=== PATIENT | male | born 1990 | race African-American/Black ===

== ENCOUNTER 2020-08-18 13:53 | Outpatient (REF) | payer OTHER, SELFPAY ==
[2020-08-18 16:31] LABS: MANUAL DIFF FLAG NO
[2020-08-18 16:34] LABS: Basophils Percent Auto 0.3 % (0-2); Eosinophils Absolute Auto 0.1 X10*3/uL (0.0-0.4); Eosinophils Percent Auto 1.5 % (0-4); Hematocrit 31.3 % (42-52); Hemoglobin 9.5 g/dl (14.0-18.0); Imm Gran Abs Auto 0.01 X10*3/uL (0.00-0.03); Imm Gran Pct Auto 0.3 % (0.0-0.4); Mean Corpuscular HGB Conc 30.4 g/dl (31.0-36.0); Mean Corpuscular Hemoglobin 22.8 pg (27.0-33.0); Mean Corpuscular Volume 75.1 fL (80-98); Mean Platelet Volume 9.7 fL (9.4-12.4); Monocytes Absolute Auto 0.2 X10*3/uL (0.1-1.2); Monocytes Percent Auto 4.6 % (2-11); Neutrophils Absolute Auto 2.1 X10*3/uL (2.0-8.3); Neutrophils Percent Auto 63.3 % (45-73); Platelet Count 477 X10*3/uL (160-400); Red Blood Count 4.17 X10*6/uL (4.60-5.80); Red Cell Distribution Width 15.8 % (11.0-16.0); White Blood Count 3.3 X10*3/uL (4.8-10.8)
[2020-08-18 16:57] LABS: Iron 19 mcg/dL (45-160); Percent Iron Saturation 7 % (15-50); Total Iron Binding Capacity 259 mcg/dL (228-428); Unsaturated Iron Binding 240 ug/dL
== END 2020-08-18 13:54 | disposition home or self-care (01) ==
LOC: HO.HMGCLDS 13:53
PROVIDERS: PCP Internal Medicine; Visit Provider Internal Medicine
DX: D64.9 Anemia, unspecified (principal)
CPT/HCPCS: 36415; 83540; 85025

== ENCOUNTER 2021-04-24 16:53 | Emergency (ER) | payer OTHER, SELFPAY ==
[2021-04-24 17:02] VITALS: BP 133/77; PULSE 69; RESP 18; TEMP 37; O2SAT 100; BMI 50.6
--- NOTE | 2021-04-24 17:50 | ED_ITS ---
HPI - Skin/Abscess/Foreign Bdy General Chief complaint: Skin/Abscess/Foreign Body Stated complaint: body rash Time Seen by Provider: 04/24/21 17:41 Source: patient Mode of arrival: ambulatory Limitations: no limitations History of Present Illness HPI narrative: 30-year-old male with a history of stage IV Hodgkin lymphoma with splenic, lung and bone marrow involvement who is now status post 6 cycles of chemotherapy, completed in January 2021 who presents to the ER with red raised itchy rash on his bilateral arms, lower trunk and inner thighs for the last 1 week. Rash appears to be worse at point of contact and flexor surfaces. He did recently start going to the gym 2 weeks ago and has been sweating more than usual. He denies any new creams, lotions, detergents, colognes. He has not taken any medications for the itching. He denies any shortness of breath, wheezing, mouth or throat swelling. No new medications. He had a it PE T/CT scan after he completed chemotherapy which is consistent with complete remission he started radiation therapy for bulky disease in the chest. He still has his port in his left chest with plan to get it out at the next heme/Onc appointment in a month. No fever or chills. No tenderness or year warmth to the port site. MD complaint: rash Onset (ago): week(s) (1) Tetanus up to date: yes Location: LUE, RUE, LLE and RLE Severity: moderate Severity scale (1-10): 7 Quality: burning and pruritic Pain Consistency: constant Relieving factors: none Exacerbating factors: none Context: other (Recently started going to the gym.) Associated symptoms: denies other symptoms Treatments prior to arrival: none Related Data Previous Rx's Medication Instructions Recorded diclofenac sodium 1 % topical gel 4 g TOPICAL QID PRN #100 g 11/24/20 diphenhydramine HCl 25 mg tablet 50 mg PO Q6H PRN #14 tab 04/24/21 (Benadryl Allergy) prednisone 50 mg tablet 50 mg PO DAILY #6 tab 04/24/21 Allergies Allergy/AdvReac Type Severity Reaction Status Date / Time amoxicillin Allergy Unknown Verified 04/24/21 18:40 Review of Systems Review of Systems: Constitutional: No Fever, No Chills ENT/Mouth: No sore throat, No Rhinorrhea, No Swallowing Difficulty Cardiovascular: No Chest Pain, No SOB, No Orthopnea, No Edema Respiratory: No Cough, No Sputum, No Wheezing, No dyspnea Gastrointestinal: No Nausea, No Vomiting,, No abdominal Pain Musculoskeletal: No joint pain, No Myalgias Skin: + Skin Lesions, + rash Neuro: No Weakness, No Numbness, No Dizziness, No Headache Psych: +Anxiety/Panic, No Depression Heme/Lymph: No Bruising, No Lymphadenopathy Endocrine: No Polyuria, No Polydipsia [facility] Past Medical History Medical History (Updated 04/24/21 @ 19:01 by ESTRADA Arvizu) Anemia Hodgkin's lymphoma Obesity Obstructive sleep apnea Surgical History History of bronchoscopy Family History Family History Other No significant family history Social History Social History Housing: House Alcohol intake: former Patient Tobacco Use Status: Never used Tobacco e-Cigarette/Vaping Use: Never Used Second Hand Smoke Exposure: No Advance Directives: No Advance Directives Information Provided: No service: No Current occupational status: unemployed Physical Exam 2 Vital Signs: Vital Signs: Last Vital Signs Temp 98.6 F 04/24/21 17:02 Pulse 69 04/24/21 17:02 Resp 18 04/24/21 17:02 BP 133/77 04/24/21 17:02 Pulse Ox 100 04/24/21 17:02 Body Mass Index 50.6 Appearance: Alert. Oriented X3. No acute distress. Eyes: Normal external inspection ENT: Pharynx normal. Normal appearing lips, no soft palate or hard palate swelling uvula is midline. Neck: Normal inspection. Neck supple. No lymphadenopathy CVS: Normal heart rate and rhythm. Pulses normal. Respiratory: No respiratory distress. Breath sounds normal. Palpable port in the left upper chest. No tenderness, overlying erythema or warmth. Abdomen: Soft and nontender. +BS x4 Skin: Skin warm and dry. Normal skin color. Normal skin turgor. There is an urticarial rash to the bilateral flexor surfaces of his upper extremities, urticarial lesions to his anterior chest wall, lower trunk where his jeans are hitting the skin and bilateral inner thighs. There is also a faint maculopapular rash on his extensor surfaces of his upper and lower arms bilaterally. Extremities: No lower extremity edema. Neuro: Oriented X 3. No motor deficit. No sensory deficit. Course Course Course Narrative: 22-year-old male with a history of Hodgkin's lymphoma status post chemotherapy and radiation now in remission who is presenting to the ER with itchy urticarial rash on his arms, legs and trunk. He also has a mild maculopapular rash on his upper extremities. It does not appear to be purpura. No evidence of angioedema. Given his history will check coags and CBC. Reevaluation(s) Reevaluation #1: Lab workup is remarkable unremarkable. Itching is improved with Benadryl and steroids. He is stable for discharge home with treatment for urticaria. He has follow up with his Onologist in 1 month. MDM - Skin/Abscess/Foreign Bdy Lab Data Result diagrams: 04/24/21 18:37 04/24/21 18:37 Labs: Lab Results 04/24/21 04/24/21 04/24/21 Range/Units 18:37 18:37 18:37 WBC 8.0 (4.8-10.8) X10*3/uL RBC 4.92 (4.60-5.80) X10*6/uL Hgb 13.6 L (14.0-18.0) g/dl Hct 41.9 L (42.0-52.0) % MCV 85.2 (80.0-98.0) fL MCH 27.6 (27.0-33.0) pg MCHC 32.5 (31.0-36.0) g/dl RDW 15.0 (11.0-16.0) % Plt Count 249 (160-400) X10*3/uL MPV 9.0 L (9.4-12.4) fL Immature Gran % (Auto) 0.6 H (0.0-0.4) % Neut % (Auto) 59.3 (45-73) % Lymph % (Auto) 10.0 L (20-40) % [place] % (Auto) 9.5 (2-11) % Eos % (Auto) 20.1 H (0-4) % Baso % (Auto) 0.5 (0-2) % Lymph # (Auto) 0.8 L (1.2-4.9) X10*3/uL [place] # (Auto) 0.8 (0.1-1.2) X10*3/uL Eos # (Auto) 1.6 H (0.0-0.4) X10*3/uL Baso # (Auto) 0.0 (0.0-0.2) X10*3/uL Abs Immat Gran (auto) 0.05 H (0.00-0.03) X10*3/uL Absolute Neuts (auto) 4.8 (2.0-8.3) x10*3/uL Absolute Nucleated RBC 0.000 (0.0-0.012) X10*3/uL Nucleated RBC % (auto) 0.0 (0.0-0.2) /100WBC PT 11.2 (9.9-13.0) SEC INR 1.0 (0.9-1.1) APTT 33.7 (24.1-38.0) SEC Sodium 143 (135-145) mmol/L Potassium 4.6 (3.3-5.1) mmol/L Chloride 108 (96-108) mmol/L Carbon Dioxide 27 (22-29) mmol/L Anion Gap 13 (12-20) BUN 15 (9-16) mg/dL Creatinine 1.15 (0.5-1.4) mg/dL Estim Creat Clear Calc 120.4 Estimated GFR > 60 Random Glucose 90 (60-115) mg/dL Calcium 9.4 (8.4-10.2) mg/dL Critical Care Time Critical Care Time Critical Care Time: No Discharge Plan Discharge Clinical Impression: Urticaria Patient Disposition: Home, Self-Care Instructions: Urticaria (ED) Additional Instructions: Your lab workup today was unremarkable. Take the prescribed steroids once a day starting tomorrow for the rash. Take 50 mg of Benadryl every 6-8 hours as needed for itching. Avoid hot environment and sweating. Where breathable clothing made of cotton. Follow-up with the doctor next week. Prescriptions: New prednisone 50 mg tablet 50 mg PO DAILY Qty: 6 RF: 0 diphenhydramine HCl [Benadryl Allergy] 25 mg tablet 50 mg PO Q6H PRN (Reason: itching) Qty: 14 RF: 0 No Action diclofenac sodium 1 % gel 4 g topical QID PRN (Reason: knee pain) Qty: 100 RF: 1 Interventions: ED Discharge Assessment Last Done: 04/24/21 19:24 Discharge Date/Time: 04/24/21 19:25 Print Language: [place] Citizen
[2021-04-24] MEDS: predniSONE 20 MG TABLET 60 MG PO (18:41)
[2021-04-24] MEDS: diphenhydrAMINE HCL 25 MG TABLET 50 MG PO (18:41)
[2021-04-24 18:42] LABS: MANUAL DIFF FLAG NO
[2021-04-24 18:43] LABS: Basophils Percent Auto 0.5 % (0-2); Eosinophils Absolute Auto 1.6 X10*3/uL (0.0-0.4); Eosinophils Percent Auto 20.1 % (0-4); Hematocrit 41.9 % (42.0-52.0); Hemoglobin 13.6 g/dl (14.0-18.0); Imm Gran Abs Auto 0.05 X10*3/uL (0.00-0.03); Imm Gran Pct Auto 0.6 % (0.0-0.4); Lymphocytes Absolute Auto 0.8 X10*3/uL (1.2-4.9); Mean Corpuscular HGB Conc 32.5 g/dl (31.0-36.0); Mean Corpuscular Hemoglobin 27.6 pg (27.0-33.0); Mean Corpuscular Volume 85.2 fL (80.0-98.0); Monocytes Absolute Auto 0.8 X10*3/uL (0.1-1.2); Monocytes Percent Auto 9.5 % (2-11); Neutrophils Absolute Auto 4.8 x10*3/uL (2.0-8.3); Neutrophils Percent Auto 59.3 % (45-73); Platelet Count 249 X10*3/uL (160-400); Red Blood Count 4.92 X10*6/uL (4.60-5.80)
[2021-04-24 18:49] LABS: Prothrombin Time 11.2 SEC (9.9-13.0)
[2021-04-24 18:51] LABS: Partial Thromboplastin Time 33.7 SEC (24.1-38.0)
[2021-04-24 18:58] LABS: Anion Gap 13 (12-20); Blood Urea Nitrogen 15 mg/dL (9-16); Calcium 9.4 mg/dL (8.4-10.2); Carbon Dioxide 27 mmol/L (22-29); Chloride 108 mmol/L (96-108); Creatinine Clr Calc Pharmacy 120.4; Estimated Glomerular Filt Rate > 60; Glucose Random 90 mg/dL (60-115); Potassium 4.6 mmol/L (3.3-5.1); Sodium 143 mmol/L (135-145)
== END 2021-04-24 19:25 | disposition home or self-care (01) ==
PROVIDERS: Physician Assistant; Emergency Provider Internal Medicine
DX: L50.0 Allergic urticaria (principal); Z79.899 Other long term (current) drug therapy
CPT/HCPCS: 36415; 80048; 85025; 85610; 85730; 99283; Q0163

== ENCOUNTER 2022-05-18 12:03 | Outpatient (REF) | payer OTHER, SELFPAY ==
--- NOTE | ~2022-05-18 | XR_ITS ---
EXAMINATION: XR KNEE, RIGHT CLINICAL INFORMATION: Pain. COMPARISON: None TECHNIQUE: Four views of the right knee. FINDINGS: The tricompartment joint space is maintained normal. No bony erosive changes, loose bodies, acute fracture or dislocation. No abnormal joint effusion seen. There is lateral tibial condyle exostosis. The soft tissues are normal. XR/XR knee RT 2V IMPRESSION: 1. No acute fracture or dislocation. 2. Small lateral tibial condyle exostosis.
== END 2022-05-18 12:04 | disposition home or self-care (01) ==
LOC: HO.HMGCX 12:03
PROVIDERS: PCP Internal Medicine; Visit Provider Nurse Practitioner Family
DX: M25.561 Pain in right knee (principal)
CPT/HCPCS: 73560

== ENCOUNTER 2022-05-26 11:24 | Emergency (ER) | payer OTHER, SELFPAY ==
--- NOTE | ~2022-05-26 | CT_ITS ---
EXAMINATION: CT ABDOMEN AND PELVIS WITHOUT CONTRAST CLINICAL INFORMATION: Nausea, right flank pain COMPARISON: None TECHNIQUE: Multidetector volumetric imaging was performed from the superior aspect of the liver through the pubic symphysis. Sagittal and coronal reformatted images were obtained on the technologist's workstation. This CT examination was performed using dose optimization techniques as appropriate, variously including the following: *Automated exposure control *Adjustment of mA and/or kV according to patient size (this includes techniques or standardized protocols for targeted exams where dose is matched to indication/reason for exam; i.e. extremities or head) *Use of iterative reconstruction technique DLP: 795 mGy-cm FINDINGS: LUNG BASES: Tiny nodule or granuloma lateral right lung series 3 image 1 at 1.5 to 2 mm. LIVER, GALLBLADDER, AND BILIARY TREE: The liver is normal in size, shape, and attenuation. No focal hepatic lesion or biliary ductal dilatation is present. No calcific cholelithiasis. PANCREAS: Small anterior pancreatic hypodensity series 3 image 29 at 6 mm and 1 Hounsfield unit, likely representing a small cyst. SPLEEN: Unremarkable. ADRENAL GLANDS: Unremarkable. KIDNEYS AND URETERS: Small cyst lower pole left kidney, for which no further follow-up recommended. Tiny left nephroliths, nonobstructive. Mild right-sided hydronephrosis secondary to a right ureteral stone at the level of L4 measuring 5 mm maximal dimension. BLADDER: Unremarkable. GASTROINTESTINAL TRACT: Occasional colonic diverticula. Appendix appears unremarkable. No small bowel obstructive process or abnormal omental thickening. ABDOMINAL WALL: No significant hernia is appreciated. LYMPH NODES: No suspiciously enlarged adenopathy. VASCULAR: Unremarkable. PELVIC VISCERA: Unremarkable. OSSEOUS STRUCTURES: No compression fractures. CT/CT abdomen pelvis wo IV con IMPRESSION: Mild right hydronephrosis secondary to a right ureteral stone measuring 5 mm. Tiny left nephroliths, nonobstructive. Tiny lateral right lung nodule or granuloma. If the patient is low risk, no further follow-up. If the patient is high risk, optional CT in 12 months could be performed. Other incidental findings as noted above. Fleischner guidelines were followed.
[2022-05-26 11:29] VITALS: BP 108/62; PULSE 57; RESP 19; TEMP 36.8; O2SAT 100; BMI 39.4
--- NOTE | 2022-05-26 11:32 | ED.ABDPAIN ---
HPI - Abdominal Pain General Chief Complaint: Abdominal Pain <ESTRADA Steel Last Filed: 05/26/22 11:35> Stated Complaint: ABD PAIN <ESTRADA Steel Last Filed: 05/26/22 11:35> Time Seen by Provider: 05/26/22 11:49 <ESTRADA Steel Last Filed: 05/26/22 11:35> Source: patient <ESTRADA Arvizu Last Filed: 05/26/22 14:54> Mode of arrival: ambulatory <ESTRADA Arvizu Last Filed: 05/26/22 14:54> Limitations: no limitations <ESTRADA Arvizu Last Filed: 05/26/22 14:54> History of Present Illness HPI narrative: 31 yo Sami speaking male presenting to the ER c/o acute onset right sided abdominal pain that started today. He states the pain is associated with nausea and body aches. He states he does not feel good. The pain seems to come and go and is located in his right side and his right lower quadrant. He has not vomited or had any fevers. He has no pain on the left side of his abdomen. He denies any history. No history of kidney stones per his report. <ESTRADA Arvizu Last Filed: 05/26/22 14:54> MD elicited complaint: abdominal pain and flank pain <ESTRADA Arvizu Last Filed: 05/26/22 14:54> Pertinent past history: gastrointestinal bleeding <ESTRADA Arvizu Last Filed: 05/26/22 14:54> Onset (ago): hour(s) <ESTRADA Arvizu Last Filed: 05/26/22 14:54> Pain Consistency: intermittent <ESTRADA Arvizu Last Filed: 05/26/22 14:54> Location: R flank <ESTRADA Arvizu Last Filed: 05/26/22 14:54> Severity: moderate <ESTRADA Arvizu Last Filed: 05/26/22 14:54> Pain scale (0-10): 5 <ESTRADA Arvizu Last Filed: 05/26/22 14:54> Quality: sharp <ESTRADA Arvizu Last Filed: 05/26/22 14:54> Radiation: RLQ <ESTRADA Arvizu - Last Filed: 05/26/22 14:54> Migration to: no migration <ESTRADA Arvizu - Last Filed: 05/26/22 14:54> Exacerbating factors: nothing <ESTRADA Arvizu - Last Filed: 05/26/22 14:54> Relieving factors: nothing <ESTRADA Arvizu - Last Filed: 05/26/22 14:54> Related Data Home Medications: Previous Rx's Medication Instructions Recorded diclofenac sodium 1 % topical gel 4 g topical QID PRN knee pain #100 11/24/20 grams diphenhydramine HCl 25 mg tablet 50 mg PO Q6H PRN itching #14 tabs 04/24/21 (Benadryl Allergy) prednisone 50 mg tablet 50 mg PO DAILY #6 tabs 04/24/21 ibuprofen 600 mg tablet 600 mg PO Q8H PRN pain #60 tabs 05/18/22 ibuprofen 600 mg tablet 600 mg PO Q8H PRN fever or pain 05/26/22 #20 tabs ondansetron 4 mg disintegrating 4 mg PO DAILY PRN nausea and 05/26/22 tablet vomiting #7 tabs oseltamivir 75 mg capsule (Tamiflu) 75 mg PO BID 5 days #10 caps 05/26/22 oxycodone 5 mg tablet 5 mg PO Q8H PRN severe pain (scale 05/26/22 score 7-10) #5 tabs tamsulosin 0.4 mg capsule (Flomax) 0.4 mg PO DAILY #30 caps 05/26/22 <ESTRADA Steel - Last Filed: 05/26/22 11:35> Allergies/Adverse Reactions: Allergies Allergy/AdvReac Type Severity Reaction Status Date / Time amoxicillin Allergy Unknown Verified 05/18/22 11:33 <ESTRADA Steel - Last Filed: 05/26/22 11:35> PMFSH Past Medical History Medical History: Medical History Anemia Hodgkin's lymphoma Obesity Obstructive sleep apnea <ESTRADA Steel Last Filed: 05/26/22 11:35> Surgical History: Surgical History History of bronchoscopy <ESTRADA Steel - Last Filed: 05/26/22 11:35> Family History Family History: Family History Other No significant family history <ESTRADA Steel - Last Filed: 05/26/22 11:35> Social History Social History: Social History Housing: House Alcohol intake: former Patient Tobacco Use Status: Never used Tobacco e-Cigarette/Vaping Use: Never Used Second Hand Smoke Exposure: No service: No Current occupational status: unemployed <ESTRADA Steel - Last Filed: 05/26/22 11:35> Physical Exam ED Vital Signs: Vital Signs - 24 hr 05/26/22 11:29 Temperature 98.2 F Pulse Rate 57 Respiratory Rate 19 Blood Pressure 108/62 Pulse Oximetry 100 Oxygen Delivery Method Room Air BMI result Body Mass Index 39.4 <ESTRADA Steel - Last Filed: 05/26/22 11:35> Vital Signs - 24 hr 05/26/22 11:29 Temperature 98.2 F Pulse Rate 57 Respiratory Rate 19 Blood Pressure 108/62 Pulse Oximetry 100 Oxygen Delivery Method Room Air BMI result Body Mass Index 39.4 <ESTRADA Arvizu - Last Filed: 05/26/22 14:54> Course Course Course Narrative: RME 11:30AM - 31yoM c no Sig PMhx who is Sami-speaking presenting to the ER with complaints of sudden onset of right sided abdominal pain with associated chills and nausea denies any other symptoms related to this. This started today. Denies Fevers, CP/SOB, vomiting diarrhea, constipation, dysuria, hematuria or any other symptoms complaints or concerns at this time. Plan: Labs, UA, COVID/flu swab, CT scan of abd/pelvic ? kidney stones. Patient is stable he will be sent back to the waiting room for further evaluation treatment to the main ER. <ESTRADA Steel - Last Filed: 05/26/22 11:35> Reevaluation(s) Reevaluation #1: patient found to be positive for influenza B. His lab workup was unremarkable. CT scan is still pending. He is sleeping comfortably between care. <ESTRADA Arvizu - Last Filed: 05/26/22 14:54> Reevaluation #2: CT scan showing a 5 mm kidney stone on the right with mild hydronephrosis. Patient currently comfortable. 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 His pain is minimal at this time. Comfortable discharge home with pain control and outpatient follow-up with Urology. Urinalysis is still pending to rule out infection although suspicion is low given no fevers or leukocytosis. <ESTRADA Arvizu - Last Filed: 05/26/22 14:54> Reevaluation #3: UA is negative for infection, there is some blood and protein Commonly seen with kidney stones. At this time patient is stable for discharge home with treatment for the flu as well as treatment for kidney stones. He was given return precautions to return to the ER if symptoms were to worsen. Stable for d/c home <ESTRADA Arvizu - Last Filed: 05/26/22 14:54> Medical Decision Making Lab Data Result Diagrams: : 05/26/22 11:39 05/26/22 11:39 <ESTRADA Steel - Last Filed: 05/26/22 11:35> Labs: Lab Results 05/26/22 05/26/22 05/26/22 Range/Units 11:39 11:39 11:39 WBC 7.8 (4.8-10.8) X10*3/uL RBC 5.49 (4.60-5.80) X10*6/uL Hgb 15.8 (14.0-18.0) g/dl Hct 47.5 (42.0-52.0) % MCV 86.5 (80.0-98.0) fL MCH 28.8 (27.0-33.0) pg MCHC 33.3 (31.0-36.0) g/dl RDW 12.7 (11.0-16.0) % Plt Count 286 (160-400) X10*3/uL MPV 9.5 (9.4-12.4) fL Immature Gran % (Auto) 0.5 H (0.0-0.4) % Neut % (Auto) 75.5 H (45-73) % Lymph % (Auto) 14.1 L (20-40) % [place] % (Auto) 8.8 (2-11) % Eos % (Auto) 0.8 (0-4) % Baso % (Auto) 0.3 (0-2) % Lymph # (Auto) 1.1 L (1.2-4.9) X10*3/uL [place] # (Auto) 0.7 (0.1-1.2) X10*3/uL Eos # (Auto) 0.1 (0.0-0.4) X10*3/uL Baso # (Auto) 0.0 (0.0-0.2) X10*3/uL Abs Immat Gran (auto) 0.04 H (0.00-0.03) X10*3/uL Absolute Neuts (auto) 5.9 (2.0-8.3) x10*3/uL Absolute Nucleated RBC 0.000 (0.0-0.012) X10*3/uL Nucleated RBC % (auto) 0.0 (0.0-0.2) /100WBC PT 11.5 (10.0-13.1) SEC INR 1.0 (0.9-1.1) Sodium 140 (135-145) mmol/L Potassium 3.9 (3.3-5.1) mmol/L Chloride 104 (96-108) mmol/L Carbon Dioxide 22 (22-29) mmol/L Anion Gap 18 (12-20) BUN 18 H (9-16) mg/dL Creatinine 1.38 (0.5-1.4) mg/dL Estim Creat Clear Calc 86.3 Estimated GFR > 60 Random Glucose 157 H D (60-115) mg/dL Calcium 10.1 D (8.4-10.2) mg/dL Magnesium 2.1 (1.6-2.6) mg/dL Total Bilirubin 1.4 H (0.0-1.0) mg/dL AST 24 (5-37) U/L ALT 32 (0-40) U/L Alkaline Phosphatase 94 (39-117) U/L Total Protein 8.2 H (6.5-8.0) g/dL Albumin 5.0 (3.5-5.0) g/dL Lipase 17 (8-78) U/L Urine Color Urine Appearance Urine pH (5.0-9.0) Ur Specific [place] (1.005-1.025) Urine Protein (Neg-Trace) mg/dL Urine Glucose (UA) (Negative) mg/dL Urine Ketones (Negative) mg/dL Urine Blood (Negative) Urine Nitrite (Negative) Ur Leukocyte Esterase (Negative) Urine RBC (0-2) /HPF Urine WBC (0-5) /HPF Ur Squamous Epith Cells (0-2) /HPF Urine Bacteria (None Seen) Hyaline Casts (0-2) /LPF Ethyl Alcohol < 10 mg/dL COVID-19 (POONAM) (Negative) COVID-19 Clin Com Influenza Type A (SHERRI) (Negative) Influenza Type B (SHERRI) (Negative) Influenza A & B Note 05/26/22 05/26/22 05/26/22 Range/Units 11:39 11:39 14:15 WBC (4.8-10.8) X10*3/uL RBC (4.60-5.80) X10*6/uL Hgb (14.0-18.0) g/dl Hct (42.0-52.0) % MCV (80.0-98.0) fL MCH (27.0-33.0) pg MCHC (31.0-36.0) g/dl RDW (11.0-16.0) % Plt Count (160-400) X10*3/uL MPV (9.4-12.4) fL Immature Gran % (Auto) (0.0-0.4) % Neut % (Auto) (45-73) % Lymph % (Auto) (20-40) % [place] % (Auto) (2-11) % Eos % (Auto) (0-4) % Baso % (Auto) (0-2) % Lymph # (Auto) (1.2-4.9) X10*3/uL [place] # (Auto) (0.1-1.2) X10*3/uL Eos # (Auto) (0.0-0.4) X10*3/uL Baso # (Auto) (0.0-0.2) X10*3/uL Abs Immat Gran (auto) (0.00-0.03) X10*3/uL Absolute Neuts (auto) (2.0-8.3) x10*3/uL Absolute Nucleated RBC (0.0-0.012) X10*3/uL Nucleated RBC % (auto) (0.0-0.2) /100WBC PT (10.0-13.1) SEC INR (0.9-1.1) Sodium (135-145) mmol/L Potassium (3.3-5.1) mmol/L Chloride (96-108) mmol/L Carbon Dioxide (22-29) mmol/L Anion Gap (12-20) BUN (9-16) mg/dL Creatinine (0.5-1.4) mg/dL Estim Creat Clear Calc Estimated GFR Random Glucose (60-115) mg/dL Calcium (8.4-10.2) mg/dL Magnesium (1.6-2.6) mg/dL Total Bilirubin (0.0-1.0) mg/dL AST (5-37) U/L ALT (0-40) U/L Alkaline Phosphatase (39-117) U/L Total Protein (6.5-8.0) g/dL Albumin (3.5-5.0) g/dL Lipase (8-78) U/L Urine Color Yellow Urine Appearance Clear Urine pH 7.5 (5.0-9.0) Ur Specific [place] 1.020 (1.005-1.025) Urine Protein 30 (1+) H (Neg-Trace) mg/dL Urine Glucose (UA) Negative (Negative) mg/dL Urine Ketones 15 (Negative) mg/dL Urine Blood Large (3+) H (Negative) Urine Nitrite Negative (Negative) Ur Leukocyte Esterase Negative (Negative) Urine RBC >20 H (0-2) /HPF Urine WBC 0-5 (0-5) /HPF Ur Squamous Epith Cells 0-2 (0-2) /HPF Urine Bacteria None Seen (None Seen) Hyaline Casts 0-2 (0-2) /LPF Ethyl Alcohol mg/dL COVID-19 (POONAM) Negative (Negative) COVID-19 Clin Com See Note Influenza Type A (SHERRI) Negative (Negative) Influenza Type B (SHERRI) Positive A (Negative) Influenza A & B Note See Note <ESTRADA Steel - Last Filed: 05/26/22 11:35> Lab Results 05/26/22 05/26/22 05/26/22 Range/Units 11:39 11:39 11:39 WBC 7.8 (4.8-10.8) X10*3/uL RBC 5.49 (4.60-5.80) X10*6/uL Hgb 15.8 (14.0-18.0) g/dl Hct 47.5 (42.0-52.0) % MCV 86.5 (80.0-98.0) fL MCH 28.8 (27.0-33.0) pg MCHC 33.3 (31.0-36.0) g/dl RDW 12.7 (11.0-16.0) % Plt Count 286 (160-400) X10*3/uL MPV 9.5 (9.4-12.4) fL Immature Gran % (Auto) 0.5 H (0.0-0.4) % Neut % (Auto) 75.5 H (45-73) % Lymph % (Auto) 14.1 L (20-40) % [place] % (Auto) 8.8 (2-11) % Eos % (Auto) 0.8 (0-4) % Baso % (Auto) 0.3 (0-2) % Lymph # (Auto) 1.1 L (1.2-4.9) X10*3/uL [place] # (Auto) 0.7 (0.1-1.2) X10*3/uL Eos # (Auto) 0.1 (0.0-0.4) X10*3/uL Baso # (Auto) 0.0 (0.0-0.2) X10*3/uL Abs Immat Gran (auto) 0.04 H (0.00-0.03) X10*3/uL Absolute Neuts (auto) 5.9 (2.0-8.3) x10*3/uL Absolute Nucleated RBC 0.000 (0.0-0.012) X10*3/uL Nucleated RBC % (auto) 0.0 (0.0-0.2) /100WBC PT 11.5 (10.0-13.1) SEC INR 1.0 (0.9-1.1) Sodium 140 (135-145) mmol/L Potassium 3.9 (3.3-5.1) mmol/L Chloride 104 (96-108) mmol/L Carbon Dioxide 22 (22-29) mmol/L Anion Gap 18 (12-20) BUN 18 H (9-16) mg/dL Creatinine 1.38 (0.5-1.4) mg/dL Estim Creat Clear Calc 86.3 Estimated GFR > 60 Random Glucose 157 H D (60-115) mg/dL Calcium 10.1 D (8.4-10.2) mg/dL Magnesium 2.1 (1.6-2.6) mg/dL Total Bilirubin 1.4 H (0.0-1.0) mg/dL AST 24 (5-37) U/L ALT 32 (0-40) U/L Alkaline Phosphatase 94 (39-117) U/L Total Protein 8.2 H (6.5-8.0) g/dL Albumin 5.0 (3.5-5.0) g/dL Lipase 17 (8-78) U/L Urine Color Urine Appearance Urine pH (5.0-9.0) Ur Specific [place] (1.005-1.025) Urine Protein (Neg-Trace) mg/dL Urine Glucose (UA) (Negative) mg/dL Urine Ketones (Negative) mg/dL Urine Blood (Negative) Urine Nitrite (Negative) Ur Leukocyte Esterase (Negative) Urine RBC (0-2) /HPF Urine WBC (0-5) /HPF Ur Squamous Epith Cells (0-2) /HPF Urine Bacteria (None Seen) Hyaline Casts (0-2) /LPF Ethyl Alcohol < 10 mg/dL COVID-19 (POONAM) (Negative) COVID-19 Clin Com Influenza Type A (SHERRI) (Negative) Influenza Type B (SHERRI) (Negative) Influenza A & B Note 05/26/22 05/26/22 05/26/22 Range/Units 11:39 11:39 14:15 WBC (4.8-10.8) X10*3/uL RBC (4.60-5.80) X10*6/uL Hgb (14.0-18.0) g/dl Hct (42.0-52.0) % MCV (80.0-98.0) fL MCH (27.0-33.0) pg MCHC (31.0-36.0) g/dl RDW (11.0-16.0) % Plt Count (160-400) X10*3/uL MPV (9.4-12.4) fL Immature Gran % (Auto) (0.0-0.4) % Neut % (Auto) (45-73) % Lymph % (Auto) (20-40) % [place] % (Auto) (2-11) % Eos % (Auto) (0-4) % Baso % (Auto) (0-2) % Lymph # (Auto) (1.2-4.9) X10*3/uL [place] # (Auto) (0.1-1.2) X10*3/uL Eos # (Auto) (0.0-0.4) X10*3/uL Baso # (Auto) (0.0-0.2) X10*3/uL Abs Immat Gran (auto) (0.00-0.03) X10*3/uL Absolute Neuts (auto) (2.0-8.3) x10*3/uL Absolute Nucleated RBC (0.0-0.012) X10*3/uL Nucleated RBC % (auto) (0.0-0.2) /100WBC PT (10.0-13.1) SEC INR (0.9-1.1) Sodium (135-145) mmol/L Potassium (3.3-5.1) mmol/L Chloride (96-108) mmol/L Carbon Dioxide (22-29) mmol/L Anion Gap (12-20) BUN (9-16) mg/dL Creatinine (0.5-1.4) mg/dL Estim Creat Clear Calc Estimated GFR Random Glucose (60-115) mg/dL Calcium (8.4-10.2) mg/dL Magnesium (1.6-2.6) mg/dL Total Bilirubin (0.0-1.0) mg/dL AST (5-37) U/L ALT (0-40) U/L Alkaline Phosphatase (39-117) U/L Total Protein (6.5-8.0) g/dL Albumin (3.5-5.0) g/dL Lipase (8-78) U/L Urine Color Yellow Urine Appearance Clear Urine pH 7.5 (5.0-9.0) Ur Specific [place] 1.020 (1.005-1.025) Urine Protein 30 (1+) H (Neg-Trace) mg/dL Urine Glucose (UA) Negative (Negative) mg/dL Urine Ketones 15 (Negative) mg/dL Urine Blood Large (3+) H (Negative) Urine Nitrite Negative (Negative) Ur Leukocyte Esterase Negative (Negative) Urine RBC >20 H (0-2) /HPF Urine WBC 0-5 (0-5) /HPF Ur Squamous Epith Cells 0-2 (0-2) /HPF Urine Bacteria None Seen (None Seen) Hyaline Casts 0-2 (0-2) /LPF Ethyl Alcohol mg/dL COVID-19 (POONAM) Negative (Negative) COVID-19 Clin Com See Note Influenza Type A (SHERRI) Negative (Negative) Influenza Type B (SHERRI) Positive A (Negative) Influenza A & B Note See Note <ESTRADA Arvizu - Last Filed: 05/26/22 14:54> Medications Administered Discontinued Medications Generic Name Dose Route Start Last Admin Trade Name Freq PRN Reason Stop Dose Admin Acetaminophen 975 mg 05/26/22 13:05 05/26/22 13:20 Acetaminophen 325 Mg Tablet PO 05/26/22 13:06 975 mg ONCE ONE Administration Ibuprofen 600 mg 05/26/22 13:57 05/26/22 14:13 Ibuprofen 600 Mg Tablet PO 05/26/22 13:58 600 mg ONCE ONE Administration Oxycodone HCl 5 mg 05/26/22 13:57 05/26/22 14:13 Oxycodone Hcl Immed Release 5 Mg Tablet PO 05/26/22 13:58 5 mg ONCE ONE Administration Tamsulosin HCl 0.4 mg 05/26/22 13:57 05/26/22 14:13 Tamsulosin Hcl 0.4 Mg Capsule PO 05/26/22 13:58 0.4 mg ONCE ONE Administration <ESTRADA Steel - Last Filed: 05/26/22 11:35> Medications Administered Discontinued Medications Generic Name Dose Route Start Last Admin Trade Name Freq PRN Reason Stop Dose Admin Acetaminophen 975 mg 05/26/22 13:05 05/26/22 13:20 Acetaminophen 325 Mg Tablet PO 05/26/22 13:06 975 mg ONCE ONE Administration Ibuprofen 600 mg 05/26/22 13:57 05/26/22 14:13 Ibuprofen 600 Mg Tablet PO 05/26/22 13:58 600 mg ONCE ONE Administration Oxycodone HCl 5 mg 05/26/22 13:57 05/26/22 14:13 Oxycodone Hcl Immed Release 5 Mg Tablet PO 05/26/22 13:58 5 mg ONCE ONE Administration Tamsulosin HCl 0.4 mg 05/26/22 13:57 05/26/22 14:13 Tamsulosin Hcl 0.4 Mg Capsule PO 05/26/22 13:58 0.4 mg ONCE ONE Administration <ESTRADA Arvizu - Last Filed: 05/26/22 14:54> Critical Care Time Critical Care Time Critical Care Time: No <ESTRADA Arvizu - Last Filed: 05/26/22 14:54> Discharge Plan Discharge Clinical Impression: Influenza B, Kidney stone on right side <ESTRADA Steel - Last Filed: 05/26/22 11:35> Patient Disposition: Home, Self-Care <ESTRADA Steel - Last Filed: 05/26/22 11:35> Instructions: Influenza (ED), Ureteral Stones (ED) <ESTRADA Steel - Last Filed: 05/26/22 11:35> Additional Instructions: You tested positive for influenza B today. Take the prescribed Tamiflu to help short year duration of symptoms. Take [id number] cold and flu medications as needed for your symptoms as well. Rest and stay hydrated. You also were found to have a 5 mm kidney stone on the right side. It is causing some mild swelling of the kidney which is causing your pain. Hopefully will pass the stone on her own. Take the prescribed medications as directed. Recommend following up with Urology. Name number below. Call for an appointment. If you develop new or worsening symptoms call 911 or come back to the ER for further evaluation. Usted shun positivo por influenza B hoy. [place] el Tamiflu recetado para ayudar a reducir los s?ntomas alen un a?o. Tambi?n tome medicamentos de venta rodolfo para el resfriado y la gripe seg?n sea necesario para az s?ntomas. Descansa y mantente hidratado. Tambi?n se encontr? que ten?a un c?lculo renal de 5 mm en el lado derecho. Est? causando magdy leve inflamaci?n del ri??n que est? causando desai dolor. Con suerte pasar? la loreta por desai cuenta. [place] los medicamentos recetados seg?n las indicaciones. Recomendar seguimiento con Urolog?a. N?ana de nombre a continuaci?n. Llame para magdy anusha. Si desarrolla s?ntomas nuevos o que empeoran, llame al 911 o regrese a la jeanine de emergencias para magdy evaluaci?n adicional. <ESTRADA Steel - Last Filed: 05/26/22 11:35> Prescriptions: New oseltamivir [Tamiflu] 75 mg capsule 75 mg PO BID 5 Days Qty: 10 0RF ondansetron 4 mg tablet,disintegrating 4 mg PO DAILY PRN (Reason: nausea and vomiting) Qty: 7 0RF tamsulosin [Flomax] 0.4 mg capsule 0.4 mg PO DAILY Qty: 30 0RF ibuprofen 600 mg tablet 600 mg PO Q8H PRN (Reason: fever or pain) Qty: 20 0RF oxycodone 5 mg tablet 5 mg PO Q8H PRN (Reason: severe pain (scale score 7-10)) Qty: 5 0RF Rx Instructions: Partial Fill upon patient request. No Action prednisone 50 mg tablet 50 mg PO DAILY Qty: 6 0RF diphenhydramine HCl [Benadryl Allergy] 25 mg tablet 50 mg PO Q6H PRN (Reason: itching) Qty: 14 0RF diclofenac sodium 1 % gel 4 g topical QID PRN (Reason: knee pain) Qty: 100 1RF Rx Instructions: apply to single knee as needed for pain ibuprofen 600 mg tablet 600 mg PO Q8H PRN (Reason: pain) Qty: 60 0RF <ESTRADA Steel - Last Filed: 05/26/22 11:35> Referrals: [facility] [place] [facility] [Provider Group] <ESTRADA Steel - Last Filed: 05/26/22 11:35> Stand Alone Forms: Work/School Release <ESTRADA Steel - Last Filed: 05/26/22 11:35> Interventions: ED Discharge Assessment Last Done: 05/26/22 14:37 <ESTRADA Steel - Last Filed: 05/26/22 11:35> Discharge Date/Time: 05/26/22 14:43 <ESTRADA Steel - Last Filed: 05/26/22 11:35> Print Language: Sami <ESTRADA Steel - Last Filed: 05/26/22 11:35>
[2022-05-26 11:44] LABS: MANUAL DIFF FLAG NO
[2022-05-26 11:53] LABS: Prothrombin Time 11.5 SEC (10.0-13.1)
[2022-05-26 11:54] LABS: Basophils Percent Auto 0.3 % (0-2); Eosinophils Absolute Auto 0.1 X10*3/uL (0.0-0.4); Eosinophils Percent Auto 0.8 % (0-4); Hematocrit 47.5 % (42.0-52.0); Hemoglobin 15.8 g/dl (14.0-18.0); Imm Gran Abs Auto 0.04 X10*3/uL (0.00-0.03); Imm Gran Pct Auto 0.5 % (0.0-0.4); Lymphocytes Absolute Auto 1.1 X10*3/uL (1.2-4.9); Lymphocytes Percent Auto 14.1 % (20-40); Mean Corpuscular HGB Conc 33.3 g/dl (31.0-36.0); Mean Corpuscular Hemoglobin 28.8 pg (27.0-33.0); Mean Corpuscular Volume 86.5 fL (80.0-98.0); Mean Platelet Volume 9.5 fL (9.4-12.4); Monocytes Absolute Auto 0.7 X10*3/uL (0.1-1.2); Monocytes Percent Auto 8.8 % (2-11); Neutrophils Absolute Auto 5.9 x10*3/uL (2.0-8.3); Neutrophils Percent Auto 75.5 % (45-73); Platelet Count 286 X10*3/uL (160-400); Red Blood Count 5.49 X10*6/uL (4.60-5.80); Red Cell Distribution Width 12.7 % (11.0-16.0); White Blood Count 7.8 X10*3/uL (4.8-10.8)
[2022-05-26 12:06] LABS: COVID-19 Test Negative (Negative); IDNOW Serial# 16C4AD1C; IDNOW Serial# BCCEAD1C; Influenza A Negative (Negative); Influenza B2 Positive (Negative)
[2022-05-26 12:15] LABS: Alanine Aminotransferase 32 U/L (0-40); Alkaline Phosphatase 94 U/L (39-117); Anion Gap 18 (12-20); Aspartate Amino Transferase 24 U/L (5-37); Blood Urea Nitrogen 18 mg/dL (9-16); Calcium 10.1 mg/dL (8.4-10.2); Carbon Dioxide 22 mmol/L (22-29); Chloride 104 mmol/L (96-108); Creatinine Clr Calc Pharmacy 86.3; Estimated Glomerular Filt Rate > 60; Ethanol < 10 mg/dL; Glucose Random 157 mg/dL (60-115); Lipase 17 U/L (8-78); Magnesium 2.1 mg/dL (1.6-2.6); Potassium 3.9 mmol/L (3.3-5.1); Sodium 140 mmol/L (135-145); Total Protein 8.2 g/dL (6.5-8.0)
[2022-05-26 12:30] LABS: Bilirubin Total 1.4 mg/dL (0.0-1.0)
[2022-05-26] MEDS: Acetaminophen 325 MG TABLET 975 MG PO (13:20)
[2022-05-26] MEDS: Tamsulosin HCL 0.4 MG CAPSULE PO (14:13)
[2022-05-26] MEDS: oxyCODONE HCl Immed Release 5 MG TABLET PO (14:13)
[2022-05-26] MEDS: Ibuprofen 600 MG TABLET PO (14:13)
[2022-05-26 14:30] LABS: Appearance Urine Clear; Color Urine Yellow; Glucose Urine UA Negative (Negative); Leukocyte Esterase Urine Negative (Negative); Nitrite Urine Negative (Negative); PH 7.5 (5.0-9.0); UMIC TRIGGER UACC YES; Urine Blood Large (3+) (Negative); Urine Ketones 15 mg/dL (Negative); Urine Protein 30 (1+) mg/dL (Neg-Trace)
[2022-05-26 14:33] LABS: Bacteria Urine None Seen (None Seen); Hyaline Casts Urine 0-2 /LPF (0-2); RBC Urine >20 /HPF (0-2); Squamous Epithelial Cell Urine 0-2 /HPF (0-2); WBC Urine 0-5 /HPF (0-5)
== END 2022-05-26 14:43 | disposition home or self-care (01) ==
PROVIDERS: Physician Assistant Medical; Emergency Provider Student in an Organized Health Care Education/Training Program; PCP Internal Medicine
DX: J10.1 Influenza due to other identified influenza virus with other respiratory manifestations (principal); N20.0 Calculus of kidney; R10.31 Right lower quadrant pain; M79.10 Myalgia, unspecified site; R11.2 Nausea with vomiting, unspecified; Z20.822 Contact with and (suspected) exposure to COVID-19; Z79.899 Other long term (current) drug therapy
CPT/HCPCS: 36415; 74176; 80053; 81001; 82077; 83690; 83735; 85025; 85610; 87502; 87635; 99283; 99284

== ENCOUNTER 2023-10-30 11:17 | Outpatient (AMB) | payer OTHER, SELFPAY ==
--- NOTE | 2023-10-30 11:18 | MHC.OFFWIV ---
Intake Vital Signs 10/30/23 11:22 Height 5 ft 4 in Weight 248 lb BMI 42.6 BP 124/70 Blood Pressure Location Lt brachial Position Sitting Pulse 71 Pulse Source Pulse Oximeter Temp 97.9 F Temp Source Oral Pulse Oximetry (%) 99 Oxygen Delivery Method Room Air Intake Visit Reasons: Est/right knee pain ongoing (lobby) Intake Note: pt is here today for rt knee pain ongoing Patient Tobacco Use Status: Never used Tobacco Allergies amoxicillin Allergy (Verified 10/30/23 11:24) Unknown Do you need a note to return to daycare/school/sports/work: No HPI HPI Comments History of Present Illness Details Patient presents to the walk-in today for right knee pain Reports he saw his PCP for this approximately 8 months ago, had an x-ray Was told there is some problem with the ?bone? Has been waiting for appointment with Orthopedics but has not gotten a call to schedule Pain persists, worse with walking and flexion/extension He has not taking anything for the pain at this time PFSH Medical History Anemia Hodgkin's lymphoma Obesity Obstructive sleep apnea Surgical History History of bronchoscopy Family History Other No significant family history Social History Housing: House Alcohol intake: former Patient Tobacco Use Status: Never used Tobacco e-Cigarette/Vaping Use: Never Used Second Hand Smoke Exposure: No service: No Current occupational status: unemployed Review of Systems Const All systems reviewed & are unremarkable except as noted in HPI and below Physical Exam Vital Signs: Last Vital Signs Temp 97.9 F 10/30/23 11:22 Pulse 71 10/30/23 11:22 BP 124/70 10/30/23 11:22 Pulse Ox 99 10/30/23 11:22 Oxygen Delivery Method Room Air 10/30/23 11:22 BMI result Body Mass Index 42.6 General: awake, alert, oriented. Answers questions appropriately. Fully engaged in examination. Skin: warm, dry, intact HEENT: Normocephalic. Hearing intact. Cardiac: External chest normal in appearance. Respiratory: No cough, audible wheezing or stridor. Abdomen: without gross distension. MS: No obvious swelling or deformities. Right knee: Full range of motion. Positive crepitus. Tenderness over lateral joint line. Neurological: Oriented to person, place, time and situation. Thought process intact. No gait abnormalities appreciated. Psychiatric: Appropriate mood and affect. Good judgment and insight. Assessment & Plan Assessment & Plan (1) Right knee pain: Code(s): M25.561 - Pain in right knee Plan Referral placed for Orthopedics Meloxicam 50 mg p.o. daily. Patient advised on cautions for use. Take with food, do not take with other nonsteroidal anti-inflammatory medications All questions and concerns were answered, patient agrees with the plan Follow up with PCP, orthopedics or return here for any new or worsening symptoms Orders: Referrals Orthopedics Referral M25.561 - Pain in right knee Medications: New meloxicam Take with food. Do not take with other nonsteroidal anti-inflammatory medications. 15 mg PO DAILY 14 tabs 0RF Coding Level of Care Code Est Pt Level 3 (61575) Diagnoses Right knee pain M25.561
--- OUTSIDE RECORDS SUMMARY | 2023-10-30 11:19 | XMS_ITS | Continuity of Care Document ---
Author Organization [facility] ancer Care Address [address] [place] [address]- Care Team Providers Care Asw Specialist Name Role Phone Pete BETTS, Zoya Land Primary Care Physician Encounter [facility] [place] Date(s): 06/24/21 - 07/24/[facility] [address] [place] [id number] Allergies, Adverse Reactions, Alerts No Known Medication Allergies Immunizations Given and Recorded Vaccine Date Status Refusal Reason pneumococcal 23-valent vaccine 07/01/20 Given Medications omeprazole 20 mg oral enteric coated capsule 1 capsule = 20 mg, By Mouth, Daily, # 30 capsule, 2 Refills, Maintenance, 12/15/20 14:13:00 EDT, ECCapsule, [facility]/pharmacy #[id number], Partial fill upon patient request if the prescription is for a schedule II opioid drug., 162, cm, 12/15/20 13:39:00 EDT, H... Start Date: 12/15/20 Status: Ordered ondansetron 8 mg oral tablet, disintegrating 1 tablet = 8 mg, By Mouth, Every 8 hours, PRN Nausea & Vomiting, # 30 tablet, 1 Refills, Maintenance, 12/15/20 14:13:00 EDT, [facility]/pharmacy #[id number], Partial fill upon patient request if the prescription is for a schedule II opioid drug., 162, cm, 12/15/20... Start Date: 12/15/20 Status: Ordered Problem List Condition Effective Dates Status Health Status Inform ant Severe obesity(Confirmed) Active
--- OUTSIDE RECORDS SUMMARY | 2023-10-30 11:19 | XMS_ITS | Continuity of Care Document ---
Author Organization [facility] ancer Care Address [address] [place] [address]- Care Team Providers Care Parcel Contractor Name Role Phone Pete BETTS, Zoya Land Primary Care Physician Encounter [facility] [place] Date(s): 09/06/21 - 10/06/21 [facility] Care [address] [place] [id number] Attending Physician: Ashok Powers Admitting Physician: AdmAshok maya Referring Physician: AdmtrAshok Allergies, Adverse Reactions, Alerts No Known Medication Allergies Immunizations Given and Recorded Vaccine Date Status Refusal Reason pneumococcal 23-valent vaccine 07/01/20 Given Medications omeprazole 20 mg oral enteric coated capsule 1 capsule = 20 mg, By Mouth, Daily, # 30 capsule, 2 Refills, Maintenance, 12/15/20 14:13:00 EDTShante, [facility]/pharmacy #[id number], Partial fill upon patient request if the prescription is for a schedule II opioid drug., 162, cm, 12/15/20 13:39:00 EDT, H... Start Date: 12/15/20 Status: Ordered ondansetron 8 mg oral tablet, disintegrating 1 tablet = 8 mg, By Mouth, Every 8 hours, PRN Nausea & Vomiting, # 30 tablet, 1 Refills, Maintenance, 12/15/20 14:13:00 EDT, [facility]/pharmacy #[id number], Partial fill upon patient request if the prescription is for a schedule II opioid drug., 162, cm, 12/15/20... Start Date: 12/15/20 Status: Ordered Problem List Condition Effective Dates Status Health Status Inform ant Severe obesity(Confirmed) Active
--- OUTSIDE RECORDS SUMMARY | 2023-10-30 11:19 | XMS_ITS | Continuity of Care Document ---
Author Organization [facility] Address [address] [address]- Care Team Providers Care Umbrella Finisher Name Role Phone Pete BETTS, Zoya Land Primary Care Physician [place] [facility] [place] [facility] [place]20 - 08/21/20 [facility] [address] [place] [id number] Attending Physician: Ashok Powers Admitting Physician: AdmtrAshok Referring Physician: Admtr, Ar8 Allergies, Adverse Reactions, Alerts No Known Medication Allergies Immunizations Given and Recorded Vaccine Date Status Refusal Reason pneumococcal 23-valent vaccine 07/01/20 Given Medications albuterol CFC free 90 mcg/inh inhalation aerosol 2, puffs, Inhalation, Every 4 hours, PRN, # 8 Gm, Refills 0, Tot. Refills 0, Maintenance, 08/05/20 15:29:00 EST, Aerosol, Route to Pharmacy Electronically, [id number], [facility]/pharmacy #[id number], 171.6, cm, 08/05/20 15:07:00 EST, Hei... Start Date: 08/05/20 Status: Ordered FIRST Mouthwash BLM mucous membrane suspension 10 mL, Swish and Spit, Every 4 hours, PRN Mouth Sore Pain, Mix: Benadryl Elixir 4oz,, Lidocaine 100mL, Mylanta 8oz, # 1 each, 1 Refills, Maintenance, 08/14/20 15:08:00 EST, [facility]/pharmacy #[id number], Partial fill upon patient request if the prescription is... Start Date: 08/14/20 Status: Ordered ondansetron 8 mg oral tablet 1 tablet = 8 mg, By Mouth, Every 8 hours, PRN as needed for nausea/vomiting, # 30 tablet, 1 Refills, Maintenance, 08/07/20 16:26:00 EST, Tablet, [facility]/pharmacy #[id number], Partial fill upon patient request if the prescription is for a schedule II opioid drug... Start Date: 08/07/20 Status: Ordered prochlorperazine 10 mg oral tablet 1 tablet = 10 mg, By Mouth, Every 6 hours, PRN nausea/vomiting, may cause drowsiness, # 30 tablet, 1 Refills, Maintenance, 08/07/20 16:26:00 EST, [facility]/pharmacy #[id number], Partial fill upon patient requestif the prescription is for a schedule II opioid david... Start Date: 08/07/20 Status: Ordered Senna 8.6 mg oral tablet 17.2 mg, 2, tablet, By Mouth, Daily at bedtime, PRN, # 100 tablet, Refills 0, Tot. Refills 0, Maintenance, for constipation, 08/14/20 15:09:00 EST, Route to Pharmacy Electronically, [facility]/pharmacy #[id number] Tablet, Partial fill upon patient request if the p... Start Date: 08/14/20 Status: Ordered
--- OUTSIDE RECORDS SUMMARY | 2023-10-30 11:19 | XMS_ITS | Continuity of Care Document ---
Author Organization [facility] ancer Care Address [address] [place] [address]- Care Team Providers Care Director Of Dietary Name Role Phone Pete BETTS, Zoya aLnd Primary Care Physician Encounter [facility] [place] Date(s): 06/24/21 - 07/24/21 [facility] [address] [place] [id number] Allergies, Adverse Reactions, Alerts No Known Medication Allergies Immunizations Given and Recorded Vaccine Date Status Refusal Reason pneumococcal 23-valent vaccine 07/01/20 Given Medications omeprazole 20 mg oral enteric coated capsule 1 capsule = 20 mg, By Mouth, Daily, # 30 capsule, 2 Refills, Maintenance, 12/15/20 14:13:00 EDT, ECCapsule, [facility]/pharmacy #[id number], Partial fill upon patient request if the prescription is for a schedule II opioid drug., 162, cm, 12/15/20 13:39:00 EDT, H... Start Date: 12/15/20 Status: Ordered ondansetron 8 mg oral tablet, disintegrating 1 tablet = 8 mg, By Mouth, Every 8 hours, PRN Nausea & Vomiting, # 30 tablet, 1 Refills, Maintenance, 12/15/20 14:13:00 EDT, [facility]/pharmacy #[id number], Partial fill upon patient request if the prescription is for a schedule II opioid drug., 162, cm, 12/15/20... Start Date: 12/15/20 Status: Ordered Problem List Condition Effective Dates Status Health Status Inform ant Severe obesity(Confirmed) Active
--- OUTSIDE RECORDS SUMMARY | 2023-10-30 11:19 | XMS_ITS | Continuity of Care Document ---
Author Organization [facility] ter Address [address] [place] [address]- Care Team Providers Care Supervisor Building Maintenance Name Role Phone Pete BETTS, Zoya Land Primary Care Physician [place] [facility] [place] [facility] [place] Date(s): 04/22/21 - 04/22/[address] [address]- Discharge Disposition: A-D/C Walkout Attending Physician: Obinna Mayberry MD Admitting Physician: Obinna Mayberry MD Referring Physician: Not on Staff, Referring MD Allergies, Adverse Reactions, Alerts No Known Medication Allergies Immunizations Given and Recorded Vaccine Date Status Refusal Reason pneumococcal 23-valent vaccine 07/01/20 Given Medications omeprazole 20 mg oral enteric coated capsule 1 capsule = 20 mg, By Mouth, Daily, # 30 capsule, 2 Refills, Maintenance, 12/15/20 14:13:00 EDT, Shante, [facility]/pharmacy #[id number], Partial fill upon patient request if the prescription is for a schedule II opioid drug., 162, cm, 12/15/20 13:39:00 EDT, H... Start Date: 12/15/20 Status: Ordered ondansetron 8 mg oral tablet, disintegrating 1 tablet = 8 mg, By Mouth, Every 8 hours, PRN Nausea & Vomiting, # 30 tablet, 1 Refills, Maintenance, 12/15/20 14:13:00 EDT, [facility]/pharmacy #[id number], Partial fill upon patient request if the prescription is for a schedule II opioid drug., 162, cm, 12/15/20... Start Date: 12/15/20 Status: Ordered Vital Signs Most recent to oldest [Reference Range]: 1 2 3 Weight 135 kg (04/22/21 5:12 AM) Oxygen Saturation [94-100 %] 99 % (04/22/21 5:20 PM) 100 % (04/22/21 8:36 AM) 100 % (04/22/21 5:13 AM) Pulse Rate [55-90 bpm] 69 bpm (04/22/21 5:20 PM) 64 bpm (04/22/21 8:36 AM) 75 bpm (04/22/21 5:13 AM) Blood Pressure [90-138/55-84 mm Hg] 131/86mm Hg (04/22/21 5:20 PM) 120/63mm Hg (04/22/21 8:36 AM) 118/57mm Hg (04/22/21 5:13 AM) Respiratory Rate [16-30 br/min] 18 br/min (04/22/21 5:20 PM) 17 br/min (04/22/21 8:36 AM) 20 br/min (04/22/21 5:13 AM) Temperature [96.8-100.4 DegF] 98.1 DegF (04/22/21 5:20 PM) 97.6 DegF (04/22/21 8:36 AM) 97.7 DegF (04/22/21:13 AM) Mode of Delivery (Oxygen) Room air (04/22/21 5:20 PM) Room air (04/22/21 8:36 AM) Room air (04/22/21 5:13 AM) Blood pressure sites Arm, left (04/22/21 8:36 AM) Arm, right (04/22/21:13 AM) Temperature Route Oral (04/22/21 5:20 PM) Oral (04/22/21 8:36 AM) Oral (04/22/21 5:13 AM) Dry Weight 135 kg (04/22/21 5:12 AM)
--- OUTSIDE RECORDS SUMMARY | 2023-10-30 11:19 | XMS_ITS | Continuity of Care Document ---
Author Organization [facility] Address [address] [address]- Care Team Providers Care Dye Padder Operator Name Role Phone Pete BETTS, Zoya Land Primary Care Physician Encounter [facility] [place] Date(s): 07/07/20 - 08/21/20 [facility] [address] [place] [id number] Attending Physician: Abhijit Norton MD Admitting Physician: Abhijit Norton MD Referring Physician: Zoya Freeman MD Allergies, Adverse Reactions, Alerts No Known Medication Allergies Immunizations Given and Recorded Vaccine Date Status Refusal Reason pneumococcal 23-valent vaccine 07/01/20 Given Medications albuterol CFC free 90 mcg/inh inhalation aerosol 2, puffs, Inhalation, Every 4 hours, PRN, # 8 Gm, Refills 0, Tot. Refills 0, Maintenance, 08/05/20 15:29:00 EST, Aerosol, Route to Pharmacy Electronically, [id number], [facility]/pharmacy #[id number], 171.6, cm, 08/05/20 15:07:00 EST, Hei... Start Date: 08/05/20 Status: Ordered FIRST Mouthwash BLM mucous membrane suspension 10 mL, Swish and Spit, Every 4 hours, PRN Mouth Sore Pain, Mix: Benadryl Elixir 4oz,, Lidocaine 100mL, Mylanta 8oz, # 1 each, 1 Refills, Maintenance, 08/14/20 15:08:00 EST, [facility]/pharmacy #[id number], Partial fill upon patient request if the prescription is... Start Date: 08/14/20 Status: Ordered ondansetron 8 mg oral tablet 1 tablet = 8 mg, By Mouth, Every 8 hours, PRN as needed for nausea/vomiting, # 30 tablet, 1 Refills, Maintenance, 08/07/20 16:26:00 EST, Tablet, [facility]/pharmacy [id number], Partial fill upon patient request if the prescription is for a schedule II opioid drug... Start Date: 08/07/20 Status: Ordered prochlorperazine 10 mg oral tablet 1 tablet = 10 mg, By Mouth, Every 6 hours, PRN nausea/vomiting, may cause drowsiness, # 30 tablet, 1 Refills, Maintenance, 08/07/20 16:26:00 EST, [facility]/pharmacy #[id number], Partial fill upon patient requestif the prescription is for a schedule II opioid david... Start Date: 08/07/20 Status: Ordered Senna 8.6 mg oral tablet 17.2 mg, 2, tablet, By Mouth, Daily at bedtime, PRN, # 100 tablet, Refills 0, Tot. Refills 0, Maintenance, for constipation, 08/14/20 15:09:00 EST, Route to Pharmacy Electronically, [facility]/pharmacy #[id number] Tablet, Partial fill upon patient request if the p... Start Date: 08/14/20 Status: Ordered Vital Signs Most recent to oldest [Reference Range]: 1 Height 171.6 cm (07/22/20 8:37 AM)
--- OUTSIDE RECORDS SUMMARY | 2023-10-30 11:19 | XMS_ITS | Continuity of Care Document ---
Author Organization [facility] ancer Care Address [address] [place] [address]- Care Team Providers Care Home Administrator Name Role Phone Pete BETTS, Zoya Land Primary Care Physician En[place] [facility] [place] Date(s): 05/18/23 - 06/17/23 [facility] Care [address] [place] [id number] Attending Physician: Ashok Powers Admitting Physician: Ashok Powers Referring Physician: AdmtrAshok Allergies, Adverse Reactions, Alerts No Known Medication Allergies Immunizations Given and Recorded Vaccine Date Status Refusal Reason pneumococcal 23-valent vaccine 07/01/20 Given Problem List Condition Confirmation Course Effective Dates Status Health St atus Informant Severe obesity Confirmed Active Laboratory * Event Display: Non BH Lab Results Authored Date: * Event Display: Non BH Lab Results Authored Date: Patient Care team information Care Team Personnel Name: Brittney Saenz Position: [facility] Onco RN Member Role: Primary Care Nurse Name: Zoya Freeman MD Position: Reference Physician Member Role: PCP Address: Address: [address] [place] [address]- Name: Marck Loja [place] Position: [facility] AMB Office Staff Member Role: Primary Care Nurse Name: Nakia Kern RN Position: [facility] Onco RN Member Role: Primary Care Nurse Name: Mikaela Xie RN Position: [facility] Onco RN Member Role: Primary Care Nurse Care Team Related Persons Name: BALTA SCOTT Address: home [address] [place] [address]
--- OUTSIDE RECORDS SUMMARY | 2023-10-30 11:19 | XMS_ITS | Continuity of Care Document ---
Author Organization [facility] ancer Care Address [address] [place] [address]- Care Team Providers Care Shear Helper Name Role Phone Pete BETTS, Zoya Land Primary Care Physician [place] [facility] [place] Date(s): 11/01/22 - 12/01/22 [facility] Care [address] [place] [id number] Attending Physician: Ashok Powers Admitting Physician: [...] Care Team Personnel Name: Brittney Saenz Position: [facility] Onco RN Member Role: Primary Care Nurse Name: Zoya Freeman MD Position: Reference Physician Member Role: PCP Address: Address: [address] [place] [address]- Name: Marck Loja [place] Position: [facility] AMB Office Staff Member Role: Primary Care Nurse Name: Nakia Kern RN Position: [facility] Onco RN Member Role: Primary Care Nurse Name: Mikaela Xie RN Position: [facility] Onco RN Member Role: Primary Care Nurse Care Team Related Persons Name: BALTA SCOTT Address: home [address] [place] [id number]
--- OUTSIDE RECORDS SUMMARY | 2023-10-30 11:19 | XMS_ITS | Continuity of Care Document ---
Author Organization [facility] ancer Care Address [address] [place] [address]- Care Team Providers Care Toolman Name Role Phone Pete BETTS, Zoya Land Primary Care Physician Encounter [facility] [place] Date(s): 05/16/22 - 06/15/22 [facility] Care [address] [place] [id number] Attending Physician: Ashok Powers Admitting Physician: Ashok Powers Referring Physician: AdmtrAshok Allergies, Adverse Reactions, Alerts No Known Medication Allergies Immunizations Given and Recorded Vaccine Date Status Refusal Reason pneumococcal 23-valent vaccine 07/01/20 Given Problem List Condition Confirmation Course Effective Dates Status Health St atus Informant Severe obesity Confirmed Active Note * Event Display: Non BH Lab Results Authored Date: * Event Display: Non BH Lab Results Authored Date: Patient Care team information Care Team Personnel Name: Brittney Saenz Position: S Onco RN Member Role: Primary Care Nurse Name: Zoya Freeman MD Position: Reference Physician Member Role: PCP Address: Address: [address] [place] [address]- Name: Marck Loja [place] Position: [facility] PCO OFFICE STAFF Member Role: Primary Care Nurse Name: Nakia Kern RN Position: [facility] Onco RN Member Role: Primary Care Nurse Name: Mikaela Xie RN Position: S Onco RN Member Role: Primary Care Nurse Care Team Related Persons Name: BALTA SCOTT Address: home [address] [place] [address]
--- OUTSIDE RECORDS SUMMARY | 2023-10-30 11:19 | XMS_ITS | Continuity of Care Document ---
Author Organization [facility] an[facility] Care Address [address] [place] [address]- Care Team Providers Care Calculation Clerk Name Role Phone Pete BETTS, Zoya Land Primary Care Physician Encounter [facility] Date(s): 09/06/21 - 01/10/22 [facility] [address] [place] [address]- Discharge Disposition: A-D/C Home Attending Physician: Berry Schmidt MD Admitting Physician: Eva Gomez MDh Marycarmen Referring Physician: Zoya Freeman MD Allergies, Adverse Reactions, Alerts No Known Medication Allergies Immunizations Given and Recorded Vaccine Date Status Refusal Reason pneumococcal 23-valent vaccine 07/01/20 Given Medications No Known Medications Problem List Condition Effective Dates Status Health Status Inform ant Severe obesity(Confirmed) Active Vital Signs Most recent to oldest [Reference Range]: 1 Height 162 cm (11/10/21 11:17 AM) Weight 110.8 kg (11/10/21 11:17 AM) Pulse Rate [55-90 bpm] 73 bpm (11/10/21 11:17 AM) Body Mass Index [18.5-24.99] 42.22 *>HHI* (11/10/21 11:17 AM) Blood Pressure [90-138/55-84 mm Hg] 117/ 74mm Hg (11/10/21 11:17 AM) Temperature [96.8-100.4 DegF] 97.8 DegF (11/10/21 11:17 AM) Blood pressure sites Arm, right (11/10/21 11:17 AM) Temperature Route Oral (11/10/21 11:17 AM) Dry Weight 110.8 kg (11/10/21 11:17 AM) Weight Obtained Via Standing scale (11/10/21 11:17 AM) Dry Weight Obtained Via Standing scale (11/10/21 11:17 AM)
--- OUTSIDE RECORDS SUMMARY | 2023-10-30 11:19 | XMS_ITS | Continuity of Care Document ---
Author Organization [facility] ancer Care Address [address] [place] [address]- Care Team Providers Care Ruby Software Developer Name Role Phone Pete BETTS, Zoya Land Primary Care Physician Encounter [facility] [place] Date(s): 11/16/22 - 12/16/22 [facility] Care [address] [place] [id number] Allergies, Adverse Reactions, Alerts No Known Medication Allergies Immunizations Given and Recorded Vaccine Date Status Refusal Reason pneumococcal 23-valent vaccine 07/01/20 Given Problem List Condition Confirmation Course Effective Dates Status Health St atus Informant Severe obesity Confirmed Active Patient Care team information Care Team Personnel Name: Brittney Saenz Position: S Onco RN Member Role: Primary Care Nurse Name: Zoya Freeman MD Position: Reference Physician Member Role: PCP Address: Address: [address] [place], [place] [address] Name: Marck Loja [place] Position: [facility] AMB Office Staff Member Role: Primary Care Nurse Name: Nakia Kern RN Position: [facility] Onco RN Member Role: Primary Care Nurse Name: Mikaela Xie RN Position: [facility] Onco RN Member Role: Primary Care Nurse Care Team Related Persons Name: BALTA SCOTT Address: home [address] [place] [address]
--- OUTSIDE RECORDS SUMMARY | 2023-10-30 11:19 | XMS_ITS | Continuity of Care Document ---
Author Organization [facility] ter Address [address] [place] [address]- Care Team Providers Care Tunnel Inspector Name Role Phone Pete BETTS, Zoya Land Primary Care Physician Encounter [facility] [place] Date(s): 11/29/21 - 11/29/[address] [address] Discharge Disposition: A-D/C Home Attending Physician: Armand Sequeira MD Admitting Physician: Armand Sequeira MD Referring Physician: Margo Stone MD Allergies, Adverse Reactions, Alerts No Known Medication Allergies Immunizations Given and Recorded Vaccine Date Status Refusal Reason pneumococcal 23-valent vaccine 07/01/20 Given Problem List Condition Effective Dates Status Health Status Inform ant Severe obesity(Confirmed) Active Vital Signs Most recent to oldest [Reference Range]: 1 2 Height 162 cm (11/29/21 10:05 AM) 162 cm (11/29/21 9:46 AM) Weight 109 kg (11/29/21 9:46 AM) Oxygen Saturation [94-100 %] 100 % (11/29/21 10:05 AM) Pulse Rate [55-90 bpm] 70 bpm (11/29/21 10:05 AM) Blood Pressure [90-138/55-84 mm Hg] 110/ 60mm Hg (11/29/21 10:05 AM) Respiratory Rate [16-30 br/min] 20 br/mi n (11/29/21 10:05 AM) Temperature [96.8-100.4 DegF] 97.8 DegF (11/29/21 10:05 AM) Mode of Delivery (Oxygen) Room air (11/29/21 10:05 AM) Blood pressure sites Arm, right (11/29/21 10:05 AM) Temperature Route Oral (11/29/21 10:05 AM) Dry Weight 109 kg (11/29/21 9:46 AM)
--- OUTSIDE RECORDS SUMMARY | 2023-10-30 11:20 | XMS_ITS | Continuity of Care Document ---
Author Organization [facility] ter Address [address] [place] [address]- Care Team Providers Care High Pressure Operator Name Role Phone Pete BETTS, Zoya Land Primary Care Physician Encounter [facility] [place] Date(s): 08/11/21 - 10/26/[address] [address] Attending Physician: Armand Sequeira MD Admitting Physician: Armand Sequeira MD Referring Physician: Margo Stone MD Allergies, Adverse Reactions, Alerts No Known Medication Allergies Immunizations Given and Recorded Vaccine Date Status Refusal Reason pneumococcal 23-valent vaccine 07/01/20 Given Medications omeprazole 20 mg oral enteric coated capsule 1 capsule = 20 mg, By Mouth, Daily, # 30 capsule, 2 Refills, Maintenance, 12/15/20 14:13:00 EDTShante, [facility]/pharmacy #[id number], Partial fill upon patient request [...]
--- OUTSIDE RECORDS SUMMARY | 2023-10-30 11:20 | XMS_ITS | Continuity of Care Document ---
Author Organization [facility] Address [address] [place] [address]- Care Team Providers Care Levers Lace Machine Operator Name Role Phone Pete BETTS, Zoya Land Primary Care Physician Encounter [facility] Date(s): 07/03/20 - 07/23/21 [facility] [address] [place] [address] Discharge Disposition: A-D/C Home Attending Physician: Berry Schmidt MD Admitting Physician: Eva Gomez MDh Marycarmen Referring Physician: Margo Stone MD Allergies, Adverse Reactions, Alerts No Known Medication Allergies Immunizations Given and Recorded Vaccine Date Status Refusal Reason pneumococcal 23-valent vaccine 07/01/20 Given Medications omeprazole 20 mg oral enteric coated capsule 1 capsule = 20 mg, By Mouth, Daily, # 30 capsule, 2 Refills, Maintenance, 12/15/20 14:13:00 EDT, [place], [facility]/pharmacy #[id number], Partial fill upon patient request if the prescription is for a schedule II opioid drug., 162, cm, 12/15/20 13:39:00 EDT, H... Start Date: 12/15/20 Status: Ordered ondansetron 8 mg oral tablet, disintegrating 1 tablet = 8 mg, By Mouth, Every 8 hours, PRN Nausea & Vomiting, # 30 tablet, 1 Refills, Maintenance, 12/15/20 14:13:00 EDT, [facility]/pharmacy #[id number], Partial fill upon patient request if the prescription is for a schedule II opioid drug., 162, cm, 12/15/20... Start Date: 12/15/20 Status: Ordered Problem List Condition Effective Dates Status Health Status Inform ant Severe obesity(Confirmed) Active Vital Signs Most recent to oldest [Reference Range]: 1 2 3 Height 162 cm (06/16/21 1:29 PM) 162 cm (02/24/21 2:55 PM) 162 cm (02/19/21 1:27 PM) Weight 129.8 kg (06/16/21 1:29 PM) 133.2 kg (02/24/21 2:55 PM) 130.5 kg (02/19/21 1:27 PM) Oxygen Saturation [94-100 %] 100 % (02/19/21 1:27 PM) 100 % (01/12/21 10:15 AM) 100 % (12/29/20 10:22 AM) Pulse Rate [55-90 bpm] 70 bpm (06/16/21 1:29 PM) 86 bpm (02/24/21 2:55 PM) 82 bpm (02/19/21 1:27 PM) Body Mass Index [18.5-24.99] 49.46 *>HHI* (06/16/21 1:29 PM) 50.75 *>HHI* (02/24/21 2:55 PM) 49.73 *>HHI* (02/19/21 1:27 PM) Blood Pressure [90-138/55-84 mm Hg] 120/73mm Hg (06/16/21 1:29 PM) 116/73mm Hg (02/24/21 2:55 PM) 104/54mm Hg (02/19/21 1:27 PM) Temperature [96.8-100.4 DegF] 97.6 DegF (06/16/21 1:29 PM) 97.8 DegF (02/24/21 2:55 PM) 97.7 DegF (02/19/21 1:27 PM) Mode of Delivery (Oxygen) Room air (01/12/21 10:15 AM) Room air (12/29/20 10:22 AM) Room air (12/15/20 1:39 PM) Blood pressure sites Arm, left (06/16/21 1:29 PM) Arm, right (02/24/21 2:55 PM) Arm, right (02/19/21 1:27 PM) Temperature Route Temporal (06/16/21 1:29 PM) Temporal (02/24/21 2:55 PM) Temporal (02/19/21 1:27 PM) Dry Weight 129.8 kg (06/16/21 1:29 PM) 133.2 kg (02/24/21 2:55 PM) 130.5 kg (02/19/21 1:27 PM) Weight Obtained Via Standing scale (06/16/21 1:29 PM) Standing scale (02/24/21 2:55 PM) Standing scale (02/19/21 1:27 PM) Dry Weight Obtained Via Standing scale (06/16/21 1:29 PM) Standing scale (02/24/21 2:55 PM) Standing scale (02/19/21 1:27 PM)
--- OUTSIDE RECORDS SUMMARY | 2023-10-30 11:20 | XMS_ITS | Continuity of Care Document ---
Author Organization [facility] Address [address] [place] [address]- Care Team Providers Care Export Specialist Name Role Phone Pete BETTS, Zoya Land Primary Care Physician [place] [facility] Date(s): 06/17/21 - 07/17/21 [facility] [address] [place], [place] [address] Allergies, Adverse Reactions, Alerts No Known Medication Allergies Immunizations Given and Recorded Vaccine Date Status Refusal Reason pneumococcal 23-valent vaccine 07/01/20 Given Medications omeprazole 20 mg oral enteric coated capsule 1 capsule = 20 mg, By Mouth, Daily, # 30 capsule, 2 Refills, Maintenance, 12/15/20 14:13:00 EDT, [place], [facility]/pharmacy #[id number], Partial fill upon patient request if the prescription is for a schedule II opioid drug., 162, cm, 12/15/20 13:39:00 EDT, H... Start Date: 12/15/20 Status: Ordered ondansetron 8 mg oral tablet, disintegrating 1 tablet = 8 mg, By Mouth, Every 8 hours, PRN Nausea & Vomiting, # 30 tablet, 1 Refills, Maintenance, 12/15/20 14:13:00 EDT, [facility]/pharmacy #[id number], Partial fill upon patient request if the prescription is for a schedule II opioid drug., 162, cm, 12/15/20... Start Date: 12/15/20 Status: Ordered Problem List Condition Effective Dates Status Health Status Inform ant Severe obesity(Confirmed) Active
--- OUTSIDE RECORDS SUMMARY | 2023-10-30 11:20 | XMS_ITS | Continuity of Care Document ---
Author Organization [facility] Address [address] [place] [address]- Care Team Providers Care Billing Control Clerk Name Role Phone Pete BETTS, Zoya Land Primary Care Physician [place] [facility] [place] Date(s): 06/17/21 - 07/17/21 [facility] Care [address] [place], [place] [address] Allergies, Adverse Reactions, Alerts No Known Medication Allergies Immunizations Given and Recorded Vaccine Date Status Refusal Reason pneumococcal 23-valent vaccine 07/01/20 Given Medications omeprazole 20 mg oral enteric coated capsule 1 capsule = 20 mg, By Mouth, Daily, # 30 capsule, 2 Refills, Maintenance, 12/15/20 14:13:00 EDT, [place], [facility]/pharmacy #[id number], Partial fill upon patient request if the prescription is for a schedule II opioid drug., 162, cm, 12/15/20 13:39:00 EDT, H... Start Date: 12/15/20 Status: Ordered ondansetron 8 mg oral tablet, disintegrating 1 tablet = 8 mg, By Mouth, Every 8 hours, PRN Nausea & Vomiting, # 30 tablet, 1 Refills, Maintenance, 12/15/20 14:13:00 EDT, [facility]/pharmacy #[id number], Partial fill upon patient request if the prescription is for a schedule II opioid drug., 162, cm, 12/15/20... Start Date: 12/15/20 Status: Ordered Problem List Condition Effective Dates Status Health Status Inform ant Severe obesity(Confirmed) Active
--- OUTSIDE RECORDS SUMMARY | 2023-10-30 11:20 | XMS_ITS | Continuity of Care Document ---
Author Organization [facility] Address [address] [facility], [address]t [address] [place] [address]- Care Team Providers Care Snow Shoveler Name Role Phone Pete BETTS, Zoya Land Primary Care Physician Encounter [facility] Date(s): 05/17/22 - 06/16/22 [facility] [address] [facility], 4th [address] [place] [address] Allergies, Adverse Reactions, Alerts No Known [...] Physician Member Role: PCP Address: Address: [address] [place], [place] [address] Name: Marck Loja [place] Position: [facility] PCO OFFICE STAFF Member Role: Primary Care Nurse Name: Nakia Kern RN Position: [facility] RN Member Role: Primary Care Nurse Name: Mikaela Xie RN Position: [facility] RN Member Role: Primary Care Nurse Care Team Related Persons Name: BALTA SCOTT Address: home [address] [place] [address]
--- OUTSIDE RECORDS SUMMARY | 2023-10-30 11:20 | XMS_ITS | Continuity of Care Document ---
Author Organization [facility] Address [address] [place] [address]- Care Team Providers Care Boiler Room Helper Name Role Phone Pete BETTS, Zoya Land Primary Care Physician Encounter [facility] Date(s): 11/01/22 - 01/16/23 [facility] [address] [place] [address] Discharge Disposition: A-D/C Home Attending Physician: Roxana BETTS, Berry Ngo Admitting Physician: Chase BETTS, Margo Referring Physician: Pete BETTS , Zoya Land Allergies, Adverse Reactions, Alerts No Known Medication Allergies Immunizations Given and Recorded Vaccine Date Status Refusal Reason pneumococcal 23-valent vaccine 07/01/20 Given Medications No Known Medications Problem List Condition Confirmation Course Effective Dates Status Health St atus Informant Severe obesity Confirmed Active Vital Signs Most recent to oldest [Reference Range]: 1 Height 162 cm (11/16/22 10:04 AM) Weight 113.9 kg (11/16/22 10:04 AM) Oxygen Saturation [94-100 %] 97 % (11/16/22 10:04 AM) Pulse Rate [55-90 bpm] 77 bpm (11/16/22 10:04 AM) Body Mass Index [18.5-24.99 kg/m2] 43.4 kg/m2 *>HHI* (11/16/22 10:04 AM) Blood Pressure [90-138/55-84 mm Hg] 104/ 69mm Hg (11/16/22 10:04 AM) Temperature [96.8-100.4 DegF] 97.9 DegF (11/16/22 10:04 AM) Mode of Delivery (Oxygen) Room air (11/16/22 10:04 AM) Blood pressure sites Arm, right (11/16/22 10:04 AM) Temperature Route Oral (11/16/22 10:04 AM) Weight Obtained Via Standing scale (11/16/22 10:04 AM) Note * Jesus Gallardo MA: VERIFY, PERFORM, SIGN Event Display: Patient Education/Instruction Authored Date: [id number] [facility] *Heme/Onc Adult Clinical Summary Name GEOVANNI JOHNSON Age 32 Years 1990 PCP Pete BETTS , Zoya Land PCP [facility]# [id number] Visit Date 11/01/2022 09:53:00 Additional Instructions: Scheduled Appointments?? Future Appointments ?No Future Appointments Scheduled Follow-Up Instructions ?? With: Address: When: Margo Chase [address] [place] [id number] [facility] (1) 06/03/2023 9:30 AM Diagnosis Medications: Please continue your medications until treatment is completed or stopped by your provider. Discuss any questions related to medications with your provider. Allergy Info:?? No Known Medication Allergies Medications Given This Visit Future Orders ?No future orders Vital Signs Height 162 cm Weight 113.9 kg BMI 43.4 kg/m2 Blood Pressure 104 mm Hg/69 mm Hg Temperature 97.9 DegF Pulse Rate 77 bpm Respiratory Rate 02 Sat Mode of Delivery 97 %/Room air You can now view a summary of your hospital visit from the comfort of your home through a free online portal called [employer]. [employer] is a website that allows you to securely view your medical information including discharge summary, medications and follow-up visits. ??You can alsosend a secure electronic message to your doctor???s office to request appointments, renew medications or just ask a question. You can enroll at [email or web address] or register during your next office visit. Disclaimer:?? The information provided is of a general nature and is intended to be used in conjunction with the recommendations and advice of your health care practitioner. ??Every effort has been made to ensure that the information provided is accurate and complete at the time it is provided to you however, as your needs change, or, as new ??information becomes available, different or additional instructions may be required. If you have questions, please consult with your primary care provider or pharmacist, as appropriate. ??This information is not intended to serve as substitution for assessment and evaluation by a qualified health care provider. If you do not have a primary care provider, you may find a [facility] provider by calling [facility] [employer] at [phone]. For information about the plan of care including goals and instructions for your diagnosis, please see the patient education orders section of this document. Patient Education Materials?? The content of this educational material or handout may have been modified, supplemented, or adapted from its original content and format to support your individualized medical care. Patient Care team information Care Team Personnel Name: Brittney Saenz Position: [facility] Onco RN Member Role: Primary Care Nurse Name: Pete BETTS , Zoya Land Position: Reference Physician Member Role: PCP Address: Address: [address] [place] [address]- Name: Marck Loja [place] Position: [facility] AMB Office Staff Member Role: Primary Care Nurse Name: aNkia Kern RN Position: [facility] Onco RN Member Role: Primary Care Nurse Name: Mikaela Xie RN Position: [facility] Onco RN Member Role: Primary Care Nurse Name: Margo Stone MD Position: [facility] Physician - Oncology Med Service: Hematology & Oncology Member Role: Admitting Physician Address: Address: [address] [place] [address] [place] [address]- Name: Berry Schmidt MD Position: [facility] Physician - Oncology Med Service: Hematology & Oncology Member Role: Attending Physician Address: Address: [address] [place] [address] for [facility] [place] [address]- Care Team Related Persons Name: BALTA SCOTT Address: [address] [address]
--- OUTSIDE RECORDS SUMMARY | 2023-10-30 11:20 | XMS_ITS | Continuity of Care Document ---
Author Organization [facility] ter Address [address] [place] [address]- Care Team Providers Care Online Content Coordinator Name Role Phone Pete BETTS, Zoya Land Primary Care Physician Encounter [facility] Date(s): 06/29/20 - 07/03/[address] [address] Discharge Disposition: A-D/C Home Attending Physician: Annamarie Weiner MD Admitting Physician: Choco Isaac MD Referring Physician: Not on Staff, Referring MD Allergies, Adverse Reactions, Alerts No Known Medication Allergies Immunizations Given and Recorded Vaccine Date Status Refusal Reason pneumococcal 23-valent vaccine 07/01/20 Given Medications Augmentin 875 mg-125 mg oral tablet 1 tablet, By Mouth, Every 12 hours, for 4 days, # 8 tablet, 0 Refills, Acute 07/07/20 13:49:00 EST,07/03/20 13:49:00 EST, Tablet, [facility], 163, cm, 07/03/20 11:53:00 EST, Height, 110.4, kg, 07/01/20 14:11:00 EST, Dry Weight Start Date: 07/03/20 Stop Date: 07/07/20 Status: Ordered Results Orders for Microbiology Reports Name Date AFB Culture w/ AFB Smear, Respiratory Sputum Culture w/ Gram Smear 06/30/20 AFB Culture w/ AFB Smear, Respiratory Blood Culture 06/29/20 Blood Culture #2 06/29/20 Microbiology Reports TEST:AFB Culture w/AFB Smear, Respiratory STATUS:Unauthenticated BODY SITE: SOURCE:EXPECT COLLECTED DATE/TIME:07/01/20 4:38 AM AFB Culture w/AFB Smear, Respiratory SPECIMEN DESCRIPTION : EXPECTORATED SPUTUM SPUTUM SPECIAL REQUESTS : NONE DIRECT EXAM : NO ACID FAST BACILLI SEEN ON DIRECT SMEAR, TEST PERFORMED AT [facility] No acid fast bacilli seen on concentrated smear. Per [facility] protocol, this specimen was concentrated prior to smear preparation. Testing performed by [facility], [address] [place] [id number]. CULTURE : SPECIMEN SENT TO [facility], [place], [place] REPORT STATUS : PRELIMINARY REPORT TEST:Sputum Culture STATUS:Auth (Verified) BODY SITE: SOURCE:EXPECT COLLECTED DATE/TIME:06/30/20 6:00 AM Sputum Culture SPECIMEN DESCRIPTION : EXPECTORATED SPUTUM SPECIAL REQUESTS : NONE GRAM STAIN : 1+ POLYMORPHONUCLEAR LEUKOCYTES 2+ SQ.EPITHELIAL CELLS 2+ GRAM POSITIVE COCCI 2+ GRAM POSITIVE RODS 1+ GRAM NEGATIVE RODS 1+ BUDDING YEAST WITH PSEUDOHYPHAE CULTURE : MICROSCOPIC EXAM SHOWS SQUAMOUS EPITHELIAL CELLS INDICATIVE OF OROPHARYNGEAL CONTAMINATION. PLEASE RECOLLECT APPROPRIATE SPECIMEN FOR CULTURE IF CLINICALLY INDICATED. REPORT STATUS : FINAL 06/30/2020 TEST:AFB Culture w/AFB Smear, Respiratory STATUS:Unauthenticated BODY SITE: SOURCE:EXPECT COLLECTED DATE/TIME:06/30/20 6:00 AM AFB Culture w/AFB Smear, Respiratory SPECIMEN DESCRIPTION : EXPECTORATED SPUTUM SPUTUM SPECIAL REQUESTS : NONE DIRECT EXAM : NO ACID FAST BACILLI SEEN ON DIRECT SMEAR, TEST PERFORMED AT [facility] No acid fast bacilli seen on concentrated smear. Per [facility] protocol, this specimen was concentrated prior to smear preparation. Testing performed by [facility], [address] [place] [address]. CULTURE : SPECIMEN SENT TO [facility], [place], [place] REPORT STATUS : PRELIMINARY REPORT TEST:Blood Culture STATUS:Unauthenticated BODY SITE: SOURCE:Blood COLLECTED DATE/TIME:06/29/20 10:30 PM Blood Culture SPECIMEN DESCRIPTION : BLOOD NO SITE SPECIAL REQUESTS : NONE CULTURE : NO GROWTH 3 DAYS REPORT STATUS : PRELIMINARY REPORT TEST:Blood Culture, Second Order STATUS:Unauthenticated BODY SITE: SOURCE:Blood COLLECTED DATE/TIME:06/29/20 10:26 PM Blood Culture, Second Order SPECIMEN DESCRIPTION : BLOOD NO SITE SPECIAL REQUESTS : NONE CULTURE : NO GROWTH 3 DAYS REPORT STATUS : PRELIMINARY REPORT Vital Signs Most recent to oldest [Reference Range]: 1 2 3 Height 163 cm (07/03/20 11:53 AM) 163 cm (07/03/20 7:53 AM) 163 cm (07/03/20 4:06 AM) Weight 110.4 kg (07/03/20 7:53 AM) 110.4 kg (07/01/20 2:08 PM) 110.9 kg (06/30/20 8:29 AM) Oxygen Saturation [94-100 %] 94 % (07/03/20 11:53 AM) 98 % (07/03/20 10:55 AM) 97 % (07/03/20 10:45 AM) Pulse Rate [55-90 bpm] 101 bpm *H* (07/03/20 11:53 AM) 100 bpm *H* (07/03/20 10:45 AM) 99 bpm *H* (07/03/20 10:35 AM) Body Mass Index [18.5-24.99] 41.55 *>HHI* (07/03/20 7:53 AM) 41.55 *>HHI* (07/01/20 2:08 PM) 41.74 *>HHI* (06/30/20 8:29 AM) Blood Pressure [90-138/55-84 mm Hg] 94/46mm Hg (07/03/20 11:53 AM) 110/81mm Hg (07/03/20 10:55 AM) 104/76mm Hg (07/03/20 10:45 AM) Respiratory Rate [16-30 br/min] 18 br/min (07/03/20 12:00 PM) 16 br/min (07/03/20 11:53 AM) 18 br/min (07/03/20 10:55 AM) Temperature [96.8-100.4 DegF] 98.6 DegF (07/03/20 11:53 AM) 98.4 DegF (07/03/20 10:26 AM) 97.6 DegF (07/03/20 7:53 AM) Mode of Delivery (Oxygen) Room air (07/03/20 11:53 AM) Room air (07/03/20 10:55 AM) Room air (07/03/20 10:45 AM) Blood pressure sites Arm, left (07/03/20 11:53 AM) Arm, left (07/03/20 10:55 AM) Arm, left (07/03/20 10:45 AM) Temperature Route Oral (07/03/20 11:53 AM) Temporal (07/03/20 10:26 AM) Temporal (07/03/20 7:53 AM) Dry Weight 110.4 kg (07/01/20 2:08 PM) 110.9 kg (06/30/20 8:29 AM)
--- OUTSIDE RECORDS SUMMARY | 2023-10-30 11:20 | XMS_ITS | Continuity of Care Document ---
Author Organization [facility] Care Address [address] [place] [address]- Care Team Providers Care Telecommunications Linesworker Name Role Phone Pete BETTS, Zoya Land Primary Care Physician Encounter [facility] [place] Date(s): 07/03/20 - 08/02/20 [facility] Care [address] [place], [place] [address] Attending Physician: Ashok Powers Admitting Physician: Ashok Powers Referring Physician: Ashok Powers Allergies, Adverse Reactions, Alerts No Known Medication Allergies Immunizations Given and Recorded Vaccine Date Status Refusal Reason pneumococcal 23-valent vaccine 07/01/20 Given
--- OUTSIDE RECORDS SUMMARY | 2023-10-30 11:20 | XMS_ITS | Continuity of Care Document ---
Author Organization [facility] Care Address [address] [place] [address]- Care Team Providers Care Carcass Trimmer Name Role Phone Pete BETTS, Zoya Land Primary Care Physician Encounter [facility] [place] Date(s): 05/16/22 - 07/18/22 [facility] Care [address] [place] [address]- Discharge Disposition: A-D/C Home Attending Physician: Berry Schmidt MD Admitting Physician: Chase BETTS, Margo Referring Physician: Zoya Freeman MD Allergies, Adverse Reactions, Alerts No Known Medication Allergies Immunizations Given and Recorded Vaccine Date Status Refusal Reason pneumococcal 23-valent vaccine 07/01/20 Given Problem List Condition Confirmation Course Effective Dates Status Health St atus Informant Severe obesity Confirmed Active Vital Signs Most recent to oldest [Reference Range]: 1 Height 162 cm (05/18/22 10:08 AM) Weight 108.2 kg (05/18/22 10:08 AM) Oxygen Saturation [94-100 %] 98 % (05/18/22 10:08 AM) Pulse Rate [55-90 bpm] 77 bpm (05/18/22 10:08 AM) Body Mass Index [18.5-24.99 kg/m2] 41.23 kg/m2 *>HHI* (05/18/22 10:08 AM) Blood Pressure [90-138/55-84 mm Hg] 113/ 71mm Hg (05/18/22 10:08 AM) Temperature [96.8-100.4 DegF] 98.4 DegF (05/18/22 10:08 AM) Mode of Delivery (Oxygen) Room air (05/18/22 10:08 AM) Blood pressure sites Arm, right (05/18/22 10:08 AM) Temperature Route Oral (05/18/22 10:08 AM) Dry Weight 108.2 kg (05/18/22 10:08 AM) Weight Obtained Via Standing scale (05/18/22 10:08 AM) Dry Weight Obtained Via Standing scale (05/18/22 10:08 AM) Note * Taty Blue: PERFORM, SIGN, VERIFY Event Display: Patient Education/Instruction Authored Date: [id number] [facility] *Heme/Onc Adult Clinical Summary Name GEOVANNI JOHNSON Age 31 Years 1990 PCP Pete BETTS , Zoya Land PCP Visit Date 05/16/2022 11:36:00 Additional Instructions: Scheduled Appointments?? Future Appointments ?No Future Appointments Scheduled Follow-Up Instructions ?? With: Address: When: Margo Stone [address] [place] [address] [place] [address] [facility] (1) 11/16/2022 10:00 AM Diagnosis Medications: Please continue your medications until treatment is completed or stopped by your provider. Discuss any questions related to medications with your provider. Allergy Info:?? No Known Medication Allergies Medications Given This Visit Future Orders ?No future orders Vital Signs Height 162 cm Weight 108.2 kg BMI 41.23 kg/m2 Blood Pressure 113 mm Hg/71 mm Hg Temperature 98.4 DegF Pulse Rate 77 bpm Respiratory Rate 02 Sat Mode of Delivery 98 %/Room air You can now view a summary of your hospital visit from the comfort of your home through a free online portal called [email or web address]. [email or web address] is a website that allows you to securely view your medical information including discharge summary, medications and follow-up visits. ??You can alsosend a secure electronic message to your doctor???s office to request appointments, renew medications or just ask a question. You can enroll at [email or web address] or register during your next office visit. [...] primary care provider, you may find a [facility] provider by calling [facility] [facility] at [phone]. For information about the plan of care [...] Care Team Personnel Name: Brittney Saenz Position: [facility] Onco RN Member Role: Primary Care Nurse Name: Pete BETTS , Zoya Land Position: Reference Physician Member Role: PCP Address: Address: [address] [place] [address]- Name: Marck Loja [place] Position: [facility] PCO OFFICE STAFF Member Role: Primary Care Nurse Name: Nakia Kern RN Position: [facility] Onco RN Member Role: Primary Care Nurse Name: Mikaela Xie RN Position: [facility] Onco RN Member Role: Primary Care Nurse Care Team Related Persons Name: BALTA SCOTT Address: [address] [address]
--- OUTSIDE RECORDS SUMMARY | 2023-10-30 11:20 | XMS_ITS | Continuity of Care Document ---
Author Organization [facility] Address Unknown Care Team Providers Care Spinner Hand Name Role Phone Pete BETTS, Zoya Land Primary Care Physician Encounter [facility] [place] Date(s): 09/30/21 - 10/30/21 [facility] Attending Physician: Ashok Powers Admitting Physician: Ashok Powers Referring Physician: Ashok Powers Allergies, Adverse Reactions, Alerts No Known Medication Allergies Immunizations Given and Recorded Vaccine Date Status Refusal Reason pneumococcal 23-valent vaccine 07/01/20 Given Medications omeprazole 20 mg oral enteric coated capsule 1 capsule = 20 mg, By Mouth, Daily, # 30 capsule, 2 Refills, Maintenance, 12/15/20 14:13:00 EDT, ECCapsule, [facility]/pharmacy #[id number], Partial fill upon patient request if the prescription is for a schedule II opioid drug., 162, cm, 12/15/20 13:39:00 EDT, H... Start Date: 12/15/20 Status: Ordered ondansetron 8 mg oral tablet, disintegrating 1 tablet = 8 mg, By Mouth, Every 8 hours, PRN Nausea & Vomiting, # 30 tablet, 1 Refills, Maintenance, 12/15/20 14:13:00 EDT, [facility]/pharmacy #[id number], Partial fill upon patient request if the prescription is for a schedule II opioid drug., 162, cm, 12/15/20... Start Date: 12/15/20 Status: Ordered Problem List Condition Effective Dates Status Health Status Inform ant Severe obesity(Confirmed) Active
[2023-10-30 11:22] VITALS: BP 124/70; PULSE 71; TEMP 36.6; O2SAT 99; BMI 42.6
== END 2023-10-30 12:57 | disposition home or self-care (01) ==
PROVIDERS: PCP Internal Medicine; Visit Provider Registered Nurse Emergency
DX: M25.561 Pain in right knee (principal)
CPT/HCPCS: 99213

== ENCOUNTER 2023-11-30 06:53 | Outpatient (REF) | payer OTHER, SELFPAY ==
--- NOTE | ~2023-11-30 | XR_ITS ---
EXAMINATION: XR KNEE, RIGHT CLINICAL INFORMATION: Unilateral primary osteoarthritis. COMPARISON: 05/18/2022. TECHNIQUE: AP standing view of bilateral knees and 2 views of the right knee. FINDINGS: Right knee: Mild narrowing of the medial compartment with small marginal osteophytes. Trace joint effusion. Small posterior patellar spurs. AP standing view of the left knee demonstrates mild narrowing of the medial compartment with tiny marginal osteophytes. XR/XR knee RT 3V IMPRESSION: Mild degenerative changes in the right knee.
== END 2023-11-30 06:54 | disposition home or self-care (01) ==
LOC: HO.HOSX 06:53
PROVIDERS: Visit Provider Physician Assistant
DX: M17.11 Unilateral primary osteoarthritis, right knee (principal)
CPT/HCPCS: 73562; 99202

== ENCOUNTER 2023-11-30 14:05 | Outpatient (AMB) | payer OTHER, SELFPAY ==
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
== END 2023-11-30 15:53 | disposition home or self-care (01) ==
PROVIDERS: PCP Internal Medicine; Visit Provider Physician Assistant
DX: M17.11 Unilateral primary osteoarthritis, right knee (principal)
CPT/HCPCS: 99203

== ENCOUNTER 2024-01-02 17:00 | Outpatient (RCR) | payer OTHER, SELFPAY ==
--- NOTE | 2023-12-20 12:19 | MHC.PT.EP ---
[facility] [place] Office [place] Office [place] Office [address] Miguel Sanches [address] [phone] F: [phone] F: [phone] F: [phone] F: [phone] Physical Therapy Plan of Care Date of Evaluation: 12/20/23 Date of Surgery: Diagnosis: unilateral primary OA R knee Assessment: 33 y/o male referred to PT with unilateral R knee OA. Reports pain and difficulty with standing. walking, pivoting, stairs and driving. Examination shows normal knee/ hip ROM, lateral patella tracking, mild edema posterior knee, decreased hip/knee strength, and impaired gait pattern. Recommend PT 2x/week for 5 weeks to address impairments, implement HEP, and optimize functional mobility. Pt states 1x/week would be better Frequency and Duration: The patient will be seen 1x/week for 5 weeks Short Term Goals: 3 weeks I with HEP Shelter Goals: 5 weeks I with HEP Pt will be able to ambulate > 25 minutes with pain <3/10 Improve LEFS 53/80 IR 42/80 Treatment Plan: Modalities to reduce pain, spasms and effusion. Manual therapy to restore motion and function. Therapeutic exercise to improve strength and flexibility. Neuromuscular re-education for posture and balance. Therapeutic activities to return to functional activities of daily living. Electronically signed by: Bethany Nair PT Please sign and return to therapist. Thank you for your referral.
--- NOTE | 2024-02-20 09:01 | MHC.PT.DC ---
[facility] [place] Office [place] Office [place] Office [address] Miguel Sanches [address] [facility] [phone] F: [phone] F: [phone] F: [phone] F: [phone] Physical Therapy Discharge Report Diagnosis: unilateral primary OA R knee Date of Surgery: Date of Evaluation: 12/20/23 Date of Discharge: 02/20/24 Treatments to Date: 2 Cancellations to Date: 1 No Shows to Date: 2 Discharge Status: Visit Non-compliance Discharge Summary: Pt d/c with noncompliance of scheduling policy Electronically signed by: Bethany Nair PT Please sign and return to therapist. Thank you for your referral.
== END 2024-02-20 09:01 | disposition home or self-care (01) ==
LOC: HO.PT 17:00
PROVIDERS: PCP Internal Medicine; Visit Provider Physician Assistant
DX: M17.11 Unilateral primary osteoarthritis, right knee (principal)
CPT/HCPCS: 97110; 97161

== ENCOUNTER 2024-02-02 10:51 | Outpatient (REF) | payer OTHER, SELFPAY ==
--- NOTE | ~2024-02-02 | MR_ITS ---
EXAMINATION: MR KNEE WITHOUT CONTRAST, RIGHT CLINICAL INFORMATION: Right knee pain. Osteoarthritis. COMPARISON: Most recent right knee radiographs dated 11/30/2023. TECHNIQUE: MRI of the knee without contrast was performed using routine sequences on a high-field scanner. FINDINGS: MENISCI: Medial Meniscus: Intact Lateral Meniscus: Bucket handle tear of the lateral meniscus with 50% of the meniscal volume displaced centrally. Tearing extends from the anterior horn to the posterior root. The nondisplaced meniscal tissue demonstrates oblique inner margin tearing with a posterolateral parameniscal cyst measuring up to 2.5 x 0.4 x 0.9 cm. LIGAMENTS: Cruciate: Absence of the anterior cruciate ligament, consistent with a chronic, complete tear and ligament resorption. Intact posterior cruciate ligament. Collateral: Mild edema along the periphery of the medial collateral ligament consistent with a grade 1 sprain/partial tear. Intact fibular collateral ligament. EXTENSOR MECHANISM: Intact ARTICULAR CARTILAGE/BONE: Patellofemoral Compartment: Intact articular cartilage. Medial Compartment: Intact articular cartilage. Lateral Compartment: Intact articular cartilage. JOINT FLUID AND BURSAE: Small joint effusion. MR/MR knee RT wo con IMPRESSION: 1. Bucket handle tear of the lateral meniscus with 50% of the meniscal volume displaced centrally. Tearing extends from the anterior horn to the posterior root. Posterior lateral parameniscal cyst measuring up to 2.5 cm. 2. Complete, chronic tear of the anterior cruciate ligament. 3. Grade 1 sprain/partial tear of the medial collateral ligament. 4. Small joint effusion. Electronically signed by: Azar Mendieta MD 02/06/2024 12:10 PM EDT
== END 2024-02-02 10:52 | disposition home or self-care (01) ==
LOC: HO.MRI 10:51
PROVIDERS: PCP Internal Medicine; Visit Provider Physician Assistant
DX: M17.11 Unilateral primary osteoarthritis, right knee (principal)
CPT/HCPCS: 73721

== ENCOUNTER 2024-02-19 08:56 | Outpatient (AMB) | payer OTHER, SELFPAY ==
[2024-02-19 09:05] VITALS: BMI 44.6
--- NOTE | 2024-02-19 09:05 | A.OFFVIS_ITS ---
Vital Signs 02/19/24 09:05 Height 5 ft 4 in Weight 260 lb BMI 44.6 Intake Visit Reasons: OV - Right Knee MRI Review Intake Note: Delfino is a 33 year old male who presents today for an MRI follow up of his right knee. Allergies amoxicillin Allergy (Verified 02/19/24 09:05) Unknown HPI HPI OV - Right Knee MRI Review: Details: Delfino is a 33 year old male who presents today for an MRI follow up of his right knee. He has had a long history of knee instability. He describes giving way with twisting activities and he will repeatedly hurt his knee when this occurs and he has difficulty exercising and engaging in any recreational activities. He initially injured his knee over 10 years ago. He states this instability has been occurring since then. He also notices catching and pain in the lateral and posterolateral aspect of the right knee. [facility] Medical History Anemia Hodgkin's lymphoma Obesity Obstructive sleep apnea Surgical History History of bronchoscopy Family History Other No significant family history Social History Housing: House Alcohol intake: former Patient Tobacco Use Status: Never used Tobacco e-Cigarette/Vaping Use: Never Used Second Hand Smoke Exposure: No service: No Current occupational status: unemployed Physical Exam Vital Signs: BMI result Body Mass Index 44.6 Extrem Other: Positive lateral Marie's and a 2+ Debi's compared to the left. Two apprehensive for pivot shift testing. Full range of motion. No effusion. Results Reviewed Results Reviewed: I personally reviewed the MR images. 1. Bucket handle tear of the lateral meniscus with 50% of the meniscal volume displaced centrally. Tearing extends from the anterior horn to the posterior root. Posterior lateral parameniscal cyst measuring up to 2.5 cm. 2. Complete, chronic tear of the anterior cruciate ligament. 3. Grade 1 sprain/partial tear of the medial collateral ligament. 4. Small joint effusion. Assessment & Plan Assessment & Plan (1) ACL tear: Code(s): S83.519A - Sprain of anterior cruciate ligament of unspecified knee, initial encounter Category: Medical Plan: This is a 33-year-old with a chronic ACL deficient knee and a bucket-handle lateral meniscus tear. He is symptomatic, unstable and 33. I recommend ACL reconstruction with allograft and possible lateral meniscus repair. I discussed that repair may be difficult and that it may be treated with partial meniscectomy. I discussed the risks, benefits and alternatives of ACL reconstruction including continued instability, stiffness, infection, pain, need for additional surgery and extended time out of work. 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 We will schedule accordingly. (2) Bucket handle tear of lateral meniscus: Code(s): S83.259A - Bucket-handle tear of lateral meniscus, current injury, unspecified knee, initial encounter Category: Medical Plan: Coding Level of Care Code Est Pt Level 4 (75308) Diagnoses ACL tear S83.519A Bucket handle tear of lateral meniscus S83.259A
== END 2024-02-19 09:44 | disposition home or self-care (01) ==
PROVIDERS: PCP Internal Medicine; Visit Provider Orthopaedic Surgery
DX: S83.511A Sprain of anterior cruciate ligament of right knee, initial encounter (principal); S83.251A Bucket-handle tear of lateral meniscus, current injury, right knee, initial encounter
CPT/HCPCS: 99214

== ENCOUNTER → 2024-02-19 08:56 | Outpatient (BNVA) | payer OTHER, SELFPAY | PROVIDERS: PCP Internal Medicine; Visit Provider Orthopaedic Surgery | DX: S83.511D Sprain of anterior cruciate ligament of right knee, subsequent encounter (principal); S83.251D Bucket-handle tear of lateral meniscus, current injury, right knee, subsequent encounter | CPT/HCPCS: 99212 ==

== ENCOUNTER 2024-03-06 09:54 | Day surgery (SDC) | payer OTHER, SELFPAY ==
[2024-03-04 12:11] VITALS: BMI 44.6
--- NOTE | 2024-03-05 09:57 | P.CONAN_ITS ---
Documented by User: Lorie Rangel NP 03/05/24 10:17 HPI - Anesthesia Eval Consult details Narrative: 33yo M for Right ACL Allograft,possible lateral meniscus repair Hx Hodgkin [id number] [facility] Active Problems Active Problems: All Active Problems Bucket handle tear of lateral meniscus (Acute) ACL tear (Acute) Patellofemoral arthritis of right knee (Acute) Right knee pain (Acute) Anemia (Acute) Obesity (Acute) Obstructive sleep apnea (Acute) Hodgkin's lymphoma (Acute) Past Medical History Medical History Anemia Obesity Obstructive sleep apnea Hodgkin's lymphoma Family History Family History Other No significant family history Surgical History Surgical History History of bronchoscopy Social History Social History Housing: House Alcohol intake: former Patient Tobacco Use Status: Never used Tobacco e-Cigarette/Vaping Use: Never Used Second Hand Smoke Exposure: No Have you been hit, kicked, punched, or otherwise hurt by someone within the past year? If so, by whom?: No Are you DNR?: No Advance Directives: No Advance Directives Information Provided: Yes Recently lost weight without trying: No service: No Current occupational status: unemployed Meds Allergies Allergy/AdvReac Type Severity Reaction Status Date / Time amoxicillin Allergy Unknown Verified 02/19/24 09:05 Exam Height,Weight and Vital Signs: Height 5 ft 4 in Weight 117.934 kg Assessment and Plan Assessment Anesthesia Assessment: Chart Reviewed Documented by User: Kiana Jordan MD 03/06/24 10:38 [facility] Past Medical History Medical History Anemia Obesity Obstructive sleep apnea Hodgkin's lymphoma Family History Family History Other No significant family history Family history of problems with anesthesia: No Surgical History Surgical History History of bronchoscopy History of Problems with Anesthesia: No Social History Social History Housing: House Alcohol intake: former Patient Tobacco Use Status: Never used Tobacco e-Cigarette/Vaping Use: Never Used Second Hand Smoke Exposure: No Have you been hit, kicked, punched, or otherwise hurt by someone within the past year? If so, by whom?: No Are you DNR?: No Advance Directives: No Advance Directives Information Provided: Yes Recently lost weight without trying: No service: No Current occupational status: unemployed Meds Allergies Allergy/AdvReac Type Severity Reaction Status Date / Time amoxicillin Allergy Unknown Verified 02/19/24 09:05 Exam Airway Mallampati Class: II TM Dist: >3cm Neck ROM: Full Heart: rrr Lungs: cta Assessment and Plan Assessment Anesthesia Assessment: Anesthesia Plan Discussed Final Anesthetic Review Family History of Problems with Anesthesia: No History of Problems with Anesthesia: No NPO: Yes ASA Class: III Final Preanesthetic Review: No Changes in Pt Med Stat, Meds/Allgs Chart Reviewed, Consent Obtained/Reviewed and Anes Risks/Benef Reviewed Patient Risk: Intermediate Procedure Risk: Intermediate Anesthetic Plan Anesthetic Plan: GA and Regional Block Disposition: Standard PACU
[2024-03-06] VITALS (7 sets, daily range): BP systolic 123–145; BP diastolic 69–89; PULSE 66–85; RESP 14–20; TEMP 36.1–36.9; O2SAT 97–100; BMI 43.4
--- OUTSIDE RECORDS SUMMARY | 2024-03-06 09:58 | XMS_ITS | Continuity of Care Document ---
Author Organization [facility] Address [address] [place] [id number]- Care Team Providers Care Material Control Supervisor Name Role Phone Pete BETTS, Zoya Land Primary Care Physician Encounter [facility] [place] Date(s): 05/18/23 - 12/25/23 [facility] [address] [place] [id number] Discharge Disposition: A-D/C Home Attending Physician: Margo Stone MD Admitting Physician: Margo Stone MD Referring Physician: Zoya Freeman MD Allergies, Adverse Reactions, Alerts No Known Medication Allergies Immunizations Given and Recorded Vaccine Date Status Refusal Reason pneumococcal 23-valent vaccine 07/01/20 Given Problem List Condition Confirmation Course Effective Dates Status Health St atus Informant Severe obesity Confirmed Active Patient Care team information Care Team Personnel Name: Brittney Saenz Position: [facility] Onco RN Member Role: Primary Care Nurse Name: Zoya Freeman MD Position: Reference Physician Member Role: PCP Address: Address: [address] [place] [address]- Name: Marck Loja Position: [facility] Office Staff Member Role: Primary Care Nurse Name: Nkaia Kern RN Position: [facility] Onco RN Member Role: Primary Care Nurse Name: Margo Stone MD Position: [facility] Physician - Oncology Med Service: Hematology & Oncology Member Role: Admitting Physician Address: Address: [address] [place] [address] [place] [address]- Care Team Related Persons Name: BALTA SCOTT Address: home [address] [place] [address]
[2024-03-06 10:19] LABS: Hematocrit 45.8 % (42.0-52.0); Hemoglobin 15.6 g/dl (14.0-18.0); Mean Corpuscular HGB Conc 34.1 g/dl (31.0-36.0); Mean Corpuscular Hemoglobin 29.1 pg (27.0-33.0); Mean Corpuscular Volume 85.3 fL (80.0-98.0); Mean Platelet Volume 9.6 fL (9.4-12.4); Platelet Count 241 X10*3/uL (160-400); Red Blood Count 5.37 X10*6/uL (4.60-5.80); Red Cell Distribution Width 12.5 % (11.0-16.0); White Blood Count 5.4 X10*3/uL (4.8-10.8)
--- NOTE | 2024-03-06 10:26 | MHC.SHP ---
Pre-Procedural Eval Section A - 24 Hr Update-Section A only Date of Service: 03/06/24 The patient is an INPATIENT: No Changes since office visit: No Cold of Flu in the past 2 weeks, No New Medical Problems, No Changes in Medication and No Patient answered all questions The patient has been examined within 24 hours of the surgical procedure. The History & Physical has been completed within 30 days and I have reviewed it.: Yes Section B - Complete if H&P > 30 days Chief Complaint: Sprain of anterior cruciate ligament of right knee Allergies: Allergies Allergy/AdvReac Type Severity Reaction Status Date / Time amoxicillin Allergy Unknown Verified 02/19/24 09:05 Plan I have reviewed the history and physical and performed a pertinent physical examination on my patient. No changes have occurred unless specified. Time Spent With Patient Time: Total time managing care of this patient today ____ minutes.
[2024-03-06] MEDS: Lactated Ringers 1,000 ML 100 ML IVCONT (10:28)
--- NOTE | 2024-03-06 11:10 | PC.NURSE ---
pt sts doesnot need compliance review specialist
--- NOTE | 2024-03-06 12:31 | PM.OP ---
Brief Operative Note Date of Service: 03/06/24 Pre-op diagnosis: right acl tear and lateral meniscus tear Post-op diagnosis: same Procedure: RIght ACL recon with allograft and lateral meniscectomy Implants: Wu and Nephew endobutton with allograft and 10x25 interference screw Surgeon: Abraham Fagan MD Anesthesia: GLMA and regional Was an Wire Spring Relay Adjuster used for this Procedure?: Yes Wire Spring Relay Adjuster: Donna Robison Estimated blood loss (mL): 20 Tourniquet time (min): 45 IV fluids (mL): 1,000 Pathology: none sent Condition: stable Disposition: PACU
--- NOTE | 2024-03-06 15:23 | W.PM.OPN ---
Operative Note Operative Note Date of Service: 03/06/24 Narrative: Date of Service: 03/06/24 Pre-op diagnosis: right acl tear and lateral meniscus tear Post-op diagnosis: same Procedure: RIght ACL recon with allograft and lateral meniscectomy Implants: Wu and Nephew endobutton with allograft and 10x25 interference screw Surgeon: Abraham Fagan MD Anesthesia: GLMA and regional Was an Supervisor Self Service Store used for this Procedure?: Yes Supervisor Self Service Store: Donna Robison Estimated blood loss (mL): 20 Tourniquet time (min): 45 IV fluids (mL): 1,000 Pathology: none sent Condition: stable Disposition: PACU Procedure in detail: Patient was brought to the operating room placed supine on the arthroscopic table and prepped and draped in standard sterile fashion. A time-out was called to identify proper site proper procedure proper surgeon and IV antibiotics per weight were administered. Under anesthesia she had a + pivot shift. I began by exsanguinating the limb and insufflating tourniquet to 300 mm Hg. Then made a standard anterolateral stab incision. The knee was insufflated with water and 30 degree arthroscope was placed. There was grade 0 fibrillations of the patella but overall suprapatellar pouch and the gutters were clean. I descended into the medial compartment where I made my far medial portal under direct visualization. The medial comaprtment was pristine. There was an unstable bucket handle lateral meniscus tear however in the white/white zone. THis was not reduceable but the root was intact and there was an intact peripheral meniscus. This was not amenable to repair. I debrided the meniscu and I then examined the notch where there was a + empty wall sign and an intact PCL. I debrided the stump and acl footprint and performed a limited notchplasty. I then, through a far AM portal and a 7mm behind the back guide, drilled a k-wire through the LFC with the knee in hyper-flexion. I measured the tunnel as a 3 and then after sizing the allograft on the back table drilled a 35 mm tunnel with a 9.5 mm reamer. The final 5 mm was drilled iwth a 4.5 reamer. I then pulled a suture through the femoral tunnel and turned my attention to the tibia. I did examine the femoral tunnel and was satisfied with the posterior wall and its location low and medial at the anatomic footprint. I placed my tibial drill guide in 55 deg and, through a anteromedial inc just lateral to the tibial tubercle placed a k-wire into the notch exiting just medial to the anterior horn insertion of the lateral meniscus. I then over-reamed with an 10 reamer. I cleaned the tunnels up with a shaver. On the back table I whip-stitched the allograft to fit through an 11 aperture and attached the femoral button to the looped end. I placed the graft on 15lbs of tension for 10 minutes. I then passed the allograft through the tibial tunnel and femoral tunnel and flipped the button. I cycled the knee about 10-15 cycles and then placed a tibial interference screw with the knee in hyper-extension while holding the graft taught. Once I was satisfied that the interference screw was buried I examined the ACL. The ACL was not impinging and there was a negative pivot shift. I then removed all instrumentation and closed the incisions with nylon. Patient was then placed in sterile dressings and a hinged knee brace. She was then extubated brought recovery room stable condition. There were no known complications.
== END 2024-03-06 14:09 | disposition home or self-care (01) ==
LOC: HO.SSS 09:55
PROVIDERS: Nurse Practitioner; PCP Internal Medicine; Visit Provider Orthopaedic Surgery
PROC: (CPT 27428; principal; 2024-03-06 14:50)
DX: S83.511A Sprain of anterior cruciate ligament of right knee, initial encounter (principal); S83.251A Bucket-handle tear of lateral meniscus, current injury, right knee, initial encounter; M23.51 Chronic instability of knee, right knee; X50.1XXA Overexertion from prolonged static or awkward postures, initial encounter; Y93.9 Activity, unspecified; Y92.9 Unspecified place or not applicable; Y99.8 Other external cause status; E66.9 Obesity, unspecified; Z68.41 Body mass index [BMI] 40.0-44.9, adult; D64.9 Anemia, unspecified; C81.90 Hodgkin lymphoma, unspecified, unspecified site; G47.33 Obstructive sleep apnea (adult) (pediatric); Z88.0 Allergy status to penicillin
CPT/HCPCS: 29888; 29881; 36415; 85027; C1713; C1762; J0131; J0665; J0736; J1100; J1885; J2250; J2405; J2704; J3010

== ENCOUNTER → 2024-03-06 09:54 | Outpatient (BNV) | payer OTHER, SELFPAY | PROVIDERS: PCP Internal Medicine; Visit Provider Orthopaedic Surgery | DX: S83.511A Sprain of anterior cruciate ligament of right knee, initial encounter (principal); S83.251A Bucket-handle tear of lateral meniscus, current injury, right knee, initial encounter | CPT/HCPCS: 29881; 29888 ==

== ENCOUNTER 2024-03-14 11:16 | Outpatient (REF) | payer OTHER, SELFPAY | END 2024-03-14 11:17 | disposition home or self-care (01) | LOC: HO.HOSX 11:16 | PROVIDERS: Visit Provider Physician Assistant | DX: M25.561 Pain in right knee (principal); Z98.890 Other specified postprocedural states | CPT/HCPCS: 73560; 99212 ==

== ENCOUNTER 2024-03-14 15:30 | Outpatient (AMB) | payer OTHER, SELFPAY ==
--- NOTE | 2024-03-14 15:34 | MHC.OFFVIS ---
Intake Visit Reasons: PO RT ACL repair 03/06/24 NE Intake Note: Delfino is a 33 year old male who presents today for a post op appointment s/p RT ACL repair 03/06/24 NE. Patient reports he is doing ok but he is in a lot of pain. Manager Business Required: Yes Manager Business Language: Real Estate Administrative Assistant Name: Tammy [id number] Allergies amoxicillin Allergy (Verified 03/14/24 15:38) Unknown HPI HPI PO RT ACL repair 03/06/24 NE: Details: 33-year-old male, who is [place] speaking, presents in the office today for 8 days status post arthroscopic right ACL reconstruction with allograft and lateral meniscectomy which was performed on 03/06/[address] Fagan. While in the office today, the patient reports he has been experiencing severe right knee pain. he is wearing the brace as advised. [facility] Medical History Anemia Obesity Obstructive sleep apnea Hodgkin's lymphoma Surgical History History of bronchoscopy Family History Other No significant family history Social History Housing: House Alcohol intake: former Patient Tobacco Use Status: Never used Tobacco e-Cigarette/Vaping Use: Never Used Second Hand Smoke Exposure: No service: No Current occupational status: unemployed Review of Systems Const All systems reviewed & are unremarkable except as noted in HPI and below Physical Exam Const General: cooperative, healthy appearing and no acute distress Resp Effort & Inspection: normal respiratory effort and able to speak in complete sentences Cardio Rate: regular rate Peripheral pulses: Peripheral pulses 2+ throughout GI Palpation (GI): Soft to palpation Skin Lesions: no lesions Rashes: no rashes Extrem Other: Right knee: Incision sites are clean, dry, and intact. Sutures intact. No surrounding erythema or drainage. No signs of infection. NVI. Assessment & Plan Assessment & Plan (1) S/P ACL reconstruction: Code(s): Z98.890 - Other specified postprocedural states Category: Surgical Plan Mr. Cathy Cosme is a 33-year-old male, who is [place] speaking, presents in the office today for 8 days status post arthroscopic right ACL reconstruction with allograft and lateral meniscectomy which was performed on 03/06/[address] Fagan. While in the office today, the patient reports he has been experiencing severe right knee pain. He is wearing the brace as advised. Sutures were removed, and steri-strips were applied. He will remain in the brace until quad control allows him to wean out of it. I have placed an order for physical therapy to start as soon as possible. Follow-up will be in [address] Fagan, or sooner if needed. X-rays of the right knee which were obtained while in the office today and were reviewed by me, Donna Robison PA-C, revealed: Intact endo button with proper alignment on the femur. Orders: Orders XR knee RT 2V 03/14/24 M25.569 - Pain in unspecified knee PT Evaluation and Treatment 03/14/24 Z98.890 - Other specified postprocedural states Patient Instructions: Scribed by Rimma Cruz medical screener, for Donna Robison PA-C on 03/14/24 at 3:49 pm EST. Coding Level of Care Code Global (20353) Diagnoses S/P ACL reconstruction Z98.890
== END 2024-03-14 16:05 | disposition home or self-care (01) ==
PROVIDERS: PCP Internal Medicine; Visit Provider Physician Assistant
DX: Z98.890 Other specified postprocedural states (principal)
CPT/HCPCS: 99024

== ENCOUNTER 2024-04-02 12:02 | Outpatient (AMB) | payer OTHER, SELFPAY ==
--- NOTE | 2024-04-02 12:09 | A.OFFPC_ITS ---
Vital Signs 04/02/24 12:13 Height 5 ft 5 in Weight 269 lb 4 oz BMI 44.8 BP 134/78 Blood Pressure Location Rt brachial Position Sitting Pulse 87 Pulse Source Pulse Oximeter Pulse Oximetry (%) 96 Oxygen Delivery Method Room Air Intake Visit Reasons: OVERDUE ANNUAL PE- NEEDS PHQ-9 Intake Note: Pt is here today for his Annual Physical Allergies amoxicillin Allergy (Verified 04/02/24 12:29) Unknown Medication List - Last Reconciled 04/02/24 by Zoya Freeman MD morphine ER (MS Contin) 15 mg PO Q12H 3 days oxycodone-acetaminophen 5-325 mg 1 tab PO Q4-6H PRN 7 days Tobacco use date assessed: 04/02/24 Dental Screening Dental Screen Date: 04/02/24 Did you have a dental visit in the last 12 months?: Yes Did you have a dental problem in the last 6 months where you did not have access to dental care?: No Was dental information given to patient?: Patient has dentist HPI OVERDUE ANNUAL PE- NEEDS PHQ-9 HPI Details 33-year-old male with past medical histo ry significant for obstructive sleep apnea, Hodgkin's lymphoma, status post arthroscopic right ACL reconstruction with allograft and lateral meniscectomy which was performed on 03/06/[address] Fagan. Here today for physical exam. He is currently receiving physical therapy for his right knee status post ACL repair. Takes oxycodone and morphine as needed for pain prescribed by Orthopedics. He has been feeling well otherwise with no other complaints at present time [facility] Medical History (Updated 04/03/24 @ 01:59 by Zoya Freeman MD) Morbid obesity with BMI of 40.0-44.9, adult History of Hodgkin's lymphoma History of tear of ACL (anterior cruciate ligament) Obstructive sleep apnea Surgical History (Updated 04/02/24 @ 12:33 by Zoya Freeman MD) History of repair of ACL S/P ACL reconstruction History of bronchoscopy Family History Other No significant family history Social History (Updated 04/03/24 @ 01:54 by Zoya Freeman MD) Housing: House Alcohol intake: former Patient Tobacco Use Status: Never used Tobacco e-Cigarette/Vaping Use: Never Used Second Hand Smoke Exposure: No Substance Use Type: Marijuana service: No Current occupational status: unemployed Cognitive needs: No Hearing needs: No Vision needs: No Questionnaire PHQ-9 Over the last 2 weeks, how often have you been bothered by any of the following problems? 1. Little interest or pleasure in doing things: not at all 2. Feeling down, depressed, or hopeless: not at all 3. Trouble falling or staying asleep, or sleeping too much: several days 4. Feeling tired or having little energy: not at all 5. Poor appetite or overeating: not at all 6. Feeling bad about yourself - or that you are a failure or have let yourself or your family down: not at all 7. Trouble concentrating on things, such as reading the newspaper or watching television: not at all 8. Moving or speaking so slowly that other people could have noticed. Or the opposite - being so fidgety or restless that you have been moving around a lot more than usual: not at all 9. Thoughts that you would be better off or of hurting yourself in some way: not at all Total score: 1 Depression Screening Interpretation: Negative Depression Screening Done: Yes 88115 - PHQ-9 Billing: Yes Source: Developed by Drs. Juma Crump, Nydia Tucker, Agn Herbert and colleagues, with an educational yg from [employer]. Thrive Questionnaire Date Thrive assessed: 04/02/24 I am a: Patient What is your living situation today?: I have a steady place to live Within the past 12 months, did the food you bought not last and you didn't have the money to get more?: Never true Within the past 12 months, did you worry whether your food would run out before you got money to buy more?: Never true Do you have trouble paying for medicines?: No Do you have trouble getting transportation to medical appointments?: No Do you have trouble paying your heating and electricity bill?: Yes Do you have trouble taking care of your child, family member or friend?: No Do you have trouble with day-to-day activities such as bathing, preparing meals, shopping, managing finances, etc.?: No Are you currently unemployed and looking for a job?: Yes Are you interested in more education?: No Please select the resources that you would like help with: None Currently or been in a relationship where the following occur: I choose not to answer THRIVE Score: 1 AUDIT C Alcohol Use Questionnaire (AUDIT-C) 1. How often do you have a drink containing alcohol?: Never 3. How often do you have six or more drinks on one occasion?: Never Total Score: 0 Score Reviewed/Action Taken: Yes MAKENZIE-7 AMB Questionnaire MAKENZIE-7 Date MAKENZIE - 7 assessed: 04/02/24 Feeling nervous, anxious, or on edge: 0 = Not at all Not being able to stop or control worryin = Not at all Worrying too much about different things: 0 = Not at all Trouble relaxin = Several days Being so restless that it is hard to sit still: 0 = Not at all Becoming easily annoyed or irritable: 0 = Not at all Feeling afraid as if something awful might happen: 0 = Not at all Total MAKENZIE-7 score (0-4 normal; 5-9 mild; 10-14 moderate; 15-21 severe): 1 Source: Developed by Drs. Juma Crump, Nydia Tucker, Ang Herbert and colleagues, with an educational yg from [employer]. MAKENZIE-7 Assessment Billing MAKENZIE-7 Assessment Tool: MAKENZIE-7 Assessment 25846 Review of Systems Const Reports no additional complaints Eyes Denies change in vision, Denies eye discharge and Denies itchy eyes ENT Denies nasal congestion, Denies nasal discharge and Denies sore throat Card Denies chest pain, Denies palpitations and Denies dyspnea Resp Denies chest congestion, Denies cough, Denies dyspnea and Denies wheezing GI Denies abdominal pain, Denies melena, Denies bloating, Denies hematochezia, Reports constipation and Denies heartburn Denies dysuria, Denies urinary frequency and Denies urinary urgency Musc Reports as per HPI Skin/Breast Denies lesions and Denies rash Neuro Reports no additional complaints Psych Reports no additional complaints Endo Denies polydipsia, Denies polyuria and Denies palpitations Roddy/Lymph Denies easy bruising Aller/Immun Denies itchy eyes, Denies seasonal rhinorrhea and Denies wheezing Physical exam (Primary Care) Vital Signs: Last Vital Signs Pulse 87 04/02/24 12:13 BP 134/78 04/02/24 12:13 Pulse Ox 96 04/02/24 12:13 Oxygen Delivery Method Room Air 04/02/24 12:13 BMI result Body Mass Index 44.8 BMI Assessment/Plan discussion: High BMI High, discussed plan: lifestyle and dietary Tobacco/Smoking Status: Tobacco use Status Tobacco use date assessed 04/02/24 04/02/24 12:16 Patient Tobacco Use Status Never used Tobacco 04/02/24 12:09 e-Cigarette/Vaping Use Never Used 04/02/24 12:09 CPT code: Less than 3 minutes PHQ-9: PHQ-9 Score PHQ-9: Total score 1 04/02/24 13:00 Depression Screening Interpretation: Negative Thrive Assessment: Date of Thrive Assessment Date Thrive assessed 04/02/24 04/02/24 12:09 Currently or been in a relationship where the following occur: I choose not to answer Const General: cooperative, comfortable and no acute distress Nutritional Appearance: obese Orientation/consciousness: patient oriented x3 HENMT General nose exam: Normal external nose present Mouth: Normal oral and palatal mucosa present Eyes General: appearance normal, both eyes and all related structures Pupils: Equal, round and reactive pupils present EOM: EOMs intact bilaterally Neck Neck: Yes full ROM, Yes no lymphadenopathy and Yes supple Chest Chest palpation & inspection: normal inspection of the chest Resp Auscultation: clear to auscultation bilaterally Cardio Rate: regular rate Rhythm: regular rhythm Heart sounds: S1 normal heart sound present and S2 normal heart sound present GI Inspection: Yes obesity Palpation (GI): Soft to palpation, nontender, no guarding and no masses Auscultation: normal bowel sounds General: Yes no CVA tenderness Back/Spine/Pelvis Back: no CVA tenderness and No back tenderness Skin Lesions: no lesions Rashes: no rashes Neuro General: patient oriented x3, gait normal, moves all extremities, no focal motor deficits and CN's II-XI intact bilaterally Cranial nerves: Yes Equal, round and reactive pupils present Extrem Other: Right leg in an immobilizer, General: Yes full ROM (All extremities except for right lower extremity), Yes no pedal edema and Yes no calf tenderness Psych Appearance: grossly normal and well kempt Mental Status: mental status grossly normal Speech and movement: Normal speech and movement present Affect: normal affect Attitude: cooperative Coding Level of Care Code Est Pt Prev Care 18-39y(58072) Diagnoses Annual visit for general adult medical examination with abnormal findings Z00.01 Morbid obesity with BMI of 40.0-44.9, adult E66.01; Z68.41 Additional Codes MAKENZIE-7 Assessment Billing - MAKENZIE-7 Assessment Tool: MAKENZIE-7 Assessment 36209 ([id number]) Assessment & Plan Assessment & Plan (1) Annual visit for general adult medical examination with abnormal findings: Code(s): Z00.01 - Encounter for general adult medical examination with abnormal findings Plan: Will check appropriate labs. Recommended dental visit every 6 months and regular eye exams, at least every 2 years. Adherence to healthy eating habits advised, currently undergoing physical therapy for his right knee status post ACL repair. Instructed to do self-testicular exam check for any mass. Patient advised to get his yearly flu shot and COVID booster but patient declined (2) Morbid obesity with BMI of 40.0-44.9, adult: Code(s): E66.01 - Morbid (severe) obesity due to excess calories; Z68.41 - Body mass index [BMI] 40.0-44.9, adult Category: Medical Plan: Your BMI is above the ideal range. Discussed need to increase activity and weight reduction. Recommended focusing on improving health instead of dieting. Mediterranean diet is a healthy diet that helps, limit food high in fat, sugar, and calories. Eat slowly, pay attention to portion sizes, plan your meals ahead of time, start regular physical activity, at least 150 minutes of moderate intensity exercise, or 90 minutes per week of vigorous exercise after his right ACL tear has healed. Getting physical therapy. There are many health problems associated with being overweight/obese, so it is important to improve your diet and exercise. There are medications and surgical options available, but Lifestyle changes are the 1st step. Orders: Orders Basic Metabolic Panel Fasting 04/02/24 E66.9 - Obesity, unspecified, Z13.1 - Encounter for screening for diabetes mellitus, Z13.220 - Encounter for screening for lipoid disorders Aspartate Amino Transferase 04/02/24 E66.9 - Obesity, unspecified, Z13.1 - Encounter for screening for diabetes mellitus, Z13.220 - Encounter for screening for lipoid disorders Vitamin D 25-OH Total 04/02/24 E66.9 - Obesity, unspecified, Z13.1 - Encounter for screening for diabetes mellitus, Z13.220 - Encounter for screening for lipoid disorders Complete Blood Count Auto Diff 04/02/24 E66.9 - Obesity, unspecified, Z13.1 - Encounter for screening for diabetes mellitus, Z13.220 - Encounter for screening for lipoid disorders Alanine Aminotransferase 04/02/24 E66.9 - Obesity, unspecified, Z13.1 - Encounter for screening for diabetes mellitus, Z13.220 - Encounter for screening for lipoid disorders Lipid Panel 04/02/24 E66.9 - Obesity, unspecified, Z13.1 - Encounter for screening for diabetes mellitus, Z13.220 - Encounter for screening for lipoid disorders
[2024-04-02 12:13] VITALS: BP 134/78; PULSE 87; O2SAT 96; BMI 44.8
== END 2024-04-02 14:58 | disposition home or self-care (01) ==
PROVIDERS: PCP Internal Medicine; Visit Provider Internal Medicine
DX: Z00.01 Encounter for general adult medical examination with abnormal findings (principal); E66.01 Morbid (severe) obesity due to excess calories; Z68.41 Body mass index [BMI] 40.0-44.9, adult

== ENCOUNTER → 2024-04-02 12:02 | Outpatient (BNVA) | payer OTHER, SELFPAY | PROVIDERS: PCP Internal Medicine; Visit Provider Internal Medicine | DX: Z00.00 Encounter for general adult medical examination without abnormal findings (principal); E66.01 Morbid (severe) obesity due to excess calories; Z68.41 Body mass index [BMI] 40.0-44.9, adult | CPT/HCPCS: 96127; 99395 ==

== ENCOUNTER 2024-04-11 12:05 | Outpatient (AMB) | payer OTHER, SELFPAY ==
--- NOTE | 2024-04-11 12:07 | MHC.OFFVIS ---
Vital Signs 04/11/24 12:08 Height 5 ft 5 in Weight 269 lb BMI 44.8 Intake Visit Reasons: PO-s/p RT ACL repair 03/06/24 NE-4 WK Intake Note: Delfino is a 33 year old male who presents today for a post operative appointment s/p RT ACL repair 03/06/24. Patient reports that he is having continued pain, which he is taking prescribed Oxycodone for. He has no concerns at this time. Allergies amoxicillin Allergy (Verified 04/02/24 12:29) Unknown HPI HPI PO-s/p RT ACL repair 03/06/24 NE-4 WK: Details: Delfino is a 33 year old male who presents today for a post operative appointment s/p RT ACL repair 03/06/24. Patient reports that he is having continued pain, which he is taking prescribed Oxycodone for. He has no concerns at this time. [facility] Medical History (Updated 04/03/24 @ 01:59 by Zoya Freeman MD) Morbid obesity with BMI of 40.0-44.9, adult History of Hodgkin's lymphoma History of tear of ACL (anterior cruciate ligament) Obstructive sleep apnea Surgical History (Updated 04/11/24 @ 12:58 by Abraham Fagan MD) S/P ACL reconstruction History of repair of ACL History of bronchoscopy Family History Other No significant family history Social History (Updated 04/03/24 @ 01:54 by Zoya Freeman MD) Housing: House Alcohol intake: former Patient Tobacco Use Status: Never used Tobacco e-Cigarette/Vaping Use: Never Used Second Hand Smoke Exposure: No Substance Use Type: Marijuana service: No Current occupational status: unemployed Cognitive needs: No Hearing needs: No Vision needs: No Physical Exam Vital Signs: BMI result Body Mass Index 44.8 Extrem Other: Portals clean dry and intact 0-100 degrees of motion No effusion Stable Debi's Assessment & Plan Assessment & Plan (1) S/P ACL reconstruction: Code(s): Z98.890 - Other specified postprocedural states Category: Surgical Plan: 33-year-old 5 weeks status post ACL allograft. He is doing well but still hesitant and tentative. His gait mechanics are extremely poor with the brace on and I recommend he discontinue the brace but continue the crutches for protection. Continue physical therapy. His quad control is decent but he is still low tentative ambulation so I think within a month he should be able to discontinue the crutches. Follow up in 6 weeks Coding Level of Care Code Global (94634) Diagnoses S/P ACL reconstruction Z98.890
[2024-04-11 12:08] VITALS: BMI 44.8
== END 2024-04-11 12:37 | disposition home or self-care (01) ==
LOC: HO.HOS 12:05
PROVIDERS: PCP Internal Medicine; Visit Provider Orthopaedic Surgery
DX: Z98.890 Other specified postprocedural states (principal)
CPT/HCPCS: 99024

== ENCOUNTER → 2024-04-11 12:05 | Outpatient (BNVA) | payer OTHER, SELFPAY | PROVIDERS: PCP Internal Medicine; Visit Provider Orthopaedic Surgery | DX: Z98.890 Other specified postprocedural states (principal) | CPT/HCPCS: 99212 ==

== ENCOUNTER 2024-05-23 11:26 | Outpatient (AMB) | payer OTHER, SELFPAY ==
--- NOTE | 2024-05-23 11:29 | A.OFFVIS_ITS ---
Intake Visit Reasons: PO-s/p RT ACL repair 03/06/24 NE-6 WK follow up Intake Note: Delfino is a 33 year old male who presents today for a post operative appointment s/p RT ACL repair 03/06/24. At his last visit it was recommended that he discontinue brace and continue crutches due to poor gait mechanics with brace on. Presents today ambulating without brace or crutched. Continue PT. Allergies amoxicillin Allergy (Verified 04/02/24 12:29) Unknown HPI HPI PO-s/p RT ACL repair 03/06/24 NE-6 WK follow up: Details: Delfino is a 33 year old male who presents today for a post operative appointment s/p RT ACL repair 03/06/24. At his last visit it was recommended that he discontinue brace and continue crutches due to poor gait mechanics with brace on. Presents today ambulating without brace or crutched. Continue PT. he is walking better today with no pain. [facility] Medical History (Updated 04/03/24 @ 01:59 by Zoya Freeman MD) Morbid obesity with BMI of 40.0-44.9, adult History of Hodgkin's lymphoma History of tear of ACL (anterior cruciate ligament) Obstructive sleep apnea Surgical History (Updated 04/11/24 @ 12:58 by Abraham Fagan MD) S/P ACL reconstruction History of repair of ACL History of bronchoscopy Family History Other No significant family history Social History (Updated 04/03/24 @ 01:54 by Zoya Freeman MD) Housing: House Alcohol intake: former Patient Tobacco Use Status: Never used Tobacco e-Cigarette/Vaping Use: Never Used Second Hand Smoke Exposure: No Substance Use Type: Marijuana service: No Current occupational status: unemployed Cognitive needs: No Hearing needs: No Vision needs: No Physical Exam Extrem Other: 2-110 degrees of motion Stable Debi's. No effusion. No joint line tenderness. Assessment & Plan Assessment & Plan (1) S/P ACL reconstruction: Code(s): Z98.890 - Other specified postprocedural states Category: Surgical Plan: Doing well status post ACL reconstruction. Has been slow to mobilize but improving. May proceed with more aggressive PT. continue weight-bearing as tolerated. No brace necessary. We will follow up 3 months. No cutting or competitive sporting activities. Coding Level of Care Code Global (37421) Diagnoses S/P ACL reconstruction Z98.890
== END 2024-05-23 11:51 | disposition home or self-care (01) ==
PROVIDERS: PCP Internal Medicine; Visit Provider Orthopaedic Surgery
DX: Z98.890 Other specified postprocedural states (principal)
CPT/HCPCS: 99024

== ENCOUNTER → 2024-05-23 11:26 | Outpatient (BNVA) | payer OTHER, SELFPAY | PROVIDERS: PCP Internal Medicine; Visit Provider Orthopaedic Surgery | DX: Z47.89 Encounter for other orthopedic aftercare (principal); Z98.890 Other specified postprocedural states | CPT/HCPCS: 99212 ==

== ENCOUNTER 2024-08-26 09:43 | Outpatient (REF) | payer OTHER, SELFPAY ==
--- NOTE | ~2024-08-26 | XR_ITS ---
CLINICAL HISTORY: Z98.890 - Other specified postprocedural states 2 view right knee Comparison: None Findings: No fractures or dislocations. Prior ACL reconstruction. Tricompartment osteophyte formation with maintained joint spaces. No joint effusion. No radiopaque foreign body. IMPRESSION: 1. Prior ACL reconstruction with tricompartment degenerative change. Joint spaces appear maintained. This document has been electronically signed by: Aria Musa MD on 08/28/2024 05:53:59
== END 2024-08-26 09:44 | disposition home or self-care (01) ==
LOC: HO.HOSX 09:43
PROVIDERS: Visit Provider Orthopaedic Surgery
DX: Z09 Encounter for follow-up examination after completed treatment for conditions other than malignant neoplasm (principal); Z98.890 Other specified postprocedural states
CPT/HCPCS: 73560; 99212

== ENCOUNTER 2024-08-26 11:04 | Outpatient (AMB) | payer OTHER, SELFPAY ==
--- NOTE | 2024-08-26 11:12 | A.OFFVIS_ITS ---
Intake Visit Reasons: OV - RT ACL repair 03/06/24 NE Intake Note: Delfino is a 33 year old male who presents today for a post operative appointment s/p RT ACL repair 03/06/24. At his last visit he was able to discontinue use of the brace and proceed with more aggressive PT. Allergies amoxicillin Allergy (Verified 04/02/24 12:29) Unknown HPI HPI OV - RT ACL repair 03/06/24 NE: Details: Delfino is a 33 year old male who presents today for a post operative appointment s/p RT ACL repair 03/06/24. At his last visit he was able to discontinue use of the brace and proceed with more aggressive PT. [facility] Medical History (Updated 04/03/24 @ 01:59 by Zoya Freeman MD) Morbid obesity with BMI of 40.0-44.9, adult History of Hodgkin's lymphoma History of tear of ACL (anterior cruciate ligament) Obstructive sleep apnea Surgical History (Updated 04/11/24 @ 12:58 by Abraham Fagan MD) S/P ACL reconstruction History of repair of ACL History of bronchoscopy Family History Other No significant family history Social History (Updated 04/03/24 @ 01:54 by Zoya Freeman MD) Housing: House Alcohol intake: former Patient Tobacco Use Status: Never used Tobacco e-Cigarette/Vaping Use: Never Used Second Hand Smoke Exposure: No Substance Use Type: Marijuana service: No Current occupational status: unemployed Cognitive needs: No Hearing needs: No Vision needs: No Physical Exam Extrem Other: No effusion Negative Marie's Stable Debi's/anterior drawer Full range of motion Results Reviewed Results Reviewed: I personally reviewed relevant radiographs. Right knee s/p ACL with appropriate alignement and graft positioning Assessment & Plan Assessment & Plan (1) S/P ACL reconstruction: Code(s): Z98.890 - Other specified postprocedural states Category: Surgical Plan: Six months status post ACL reconstruction. I recommend dynamic PT. Prescription was written. Orders: Orders XR knee RT 2V Today Z98.890 - Other specified postprocedural states PT Evaluation and Treatment Today Z98.890 - Other specified postprocedural states Coding Level of Care Code Est Pt Level 3 (33913) Diagnoses S/P ACL reconstruction Z98.890
== END 2024-08-26 11:33 | disposition home or self-care (01) ==
LOC: HO.HOS 11:04
PROVIDERS: PCP Internal Medicine; Visit Provider Orthopaedic Surgery
DX: S83.251D Bucket-handle tear of lateral meniscus, current injury, right knee, subsequent encounter (principal)
CPT/HCPCS: 99213

== ENCOUNTER → 2024-08-26 11:06 | Outpatient (BNV) | payer OTHER, SELFPAY | PROVIDERS: Visit Provider Radiology Diagnostic Radiology | DX: M17.11 Unilateral primary osteoarthritis, right knee (principal) | CPT/HCPCS: 73560 ==

== ENCOUNTER 2024-09-19 10:00 | Outpatient (RCR) | payer OTHER, SELFPAY ==
--- NOTE | 2024-03-22 15:51 | MHC.PT.EP ---
[facility] [place] [facility] [place] [facility] [place] [facility] [address] Miguel Sanches [address] [phone] F: [phone] F: [phone] F: [phone] F: [phone] Physical Therapy Plan of Care Date of Evaluation: 03/22/24 Date of Surgery: 03/06/24 Diagnosis: s/p ACL repair (allograft) and lateral meniscectomy (DOS: 03/06/24) (RS) Assessment: Delfino is a pleasant 33 y.o. male who is referred to PT by Donna Robison PA-C, surgery performed by Dr. Abraham Fagan MD of [facility] with Dx of s/p RIGHT knee ACL repair (allograft) and lateral meniscectomy (DOS: 03/06/24). Patient impairments include post operative pain and swelling, limited ROM in knee, weakness in quad and RIGHT LE, antalgic gait with use of knee brace. Patient current functional limitations are difficulty with lower body dressing, walking, standing, sit to stand, using stairs, working, return to gym or sports (basketball) Patient will benefit from skilled PT to address aforementioned impairments and functional limitations to meet established goals. Frequency and Duration: The patient will be seen 2x/week for 8 weeks Short Term Goals: 4 weeks Patient demonstrates consistency and independence with HEP to self manage symptoms, including consistency with WB precautions. Patient presents with SLR without quad lag to be able to unlock brace for mobility/ambulation. Quarter Seamer Goals: 8 weeks Patient presents with increased R knee flexion 130 degrees to restore knee mobility for squat on/off low chairs. Patient presents with increased R knee quad strength 5/5 to be able to perform reciprocal stairs. Treatment Plan: Modalities to reduce pain, spasms and effusion. Manual therapy to restore motion and function. Therapeutic exercise to improve strength and flexibility. Neuromuscular re-education for posture and balance. Therapeutic activities to return to functional activities of daily living. Electronically signed by: Vanessa Bautista, PT, DPT Please sign and return to therapist. Thank you for your referral.
--- NOTE | 2024-11-19 12:04 | MHC.PT.DC ---
[facility] [place] [facility] [place] [facility] [place] [facility] [address] Miguel Sanches 140 [facility] [phone] F: [phone] F: [phone] F: [phone] F: [phone] Physical Therapy Discharge Report Diagnosis: s/p RIGHT knee ACL repair (allograft) and lateral meniscectomy (DOS: 03/06/24) (RS) Date of Surgery: 03/06/24 Date of Evaluation: 03/22/24 Date of Discharge: 11/19/24 Treatments to Date: 34 Cancellations to Date: 8 No Shows to Date: 4 Discharge Status: Achieved Goals Improved Function Independent with HEP Patient Elected to Stop Discharge Summary: Delfino completed long course of PT incorporating gait training, manual therapy, modalities, strengthening and ROM, muscle endurance, and static an dynamic balance activities on unstable surfaces also high step ups for return to work tasks. He ceased attending PT on his own accord. He has an independent HEP. Electronically signed by: Vanessa Bautista, PT, DPT Please sign and return to therapist. Thank you for your referral.
== END 2024-11-19 12:05 | disposition home or self-care (01) ==
LOC: HO.PT 10:00
PROVIDERS: PCP Internal Medicine; Visit Provider Physician Assistant
DX: Z98.890 Other specified postprocedural states (principal)
CPT/HCPCS: 97110; 97112; 97116; 97161; 97530

== ENCOUNTER 2024-11-29 09:50 | Outpatient (AMB) | payer OTHER, SELFPAY ==
--- NOTE | 2024-11-29 09:52 | MHC.OFFVIS ---
Vital Signs 11/29/24 09:53 Height 5 ft 5 in Weight 261 lb BMI 43.4 Intake Visit Reasons: OV - RT ACL repair 03/06/24 Intake Note: Delfino is a 33 year old male who presents today for a post operative appointment about 9 months s/p RT ACL repair 03/06/24. A prescription for dynamic PT was given at his last visit. Patella reports that he is doing well with some mild soreness. Allergies amoxicillin Allergy (Verified 04/02/24 12:29) Unknown HPI HPI OV - RT ACL repair 03/06/24: Details: eDlfino is a 33 year old male who presents today for a post operative appointment about 9 months s/p RT ACL repair 03/06/24. A prescription for dynamic PT was given at his last visit. Patella reports that he is doing well with some mild occasional soreness. [facility] Medical History Morbid obesity with BMI of 40.0-44.9, adult History of Hodgkin's lymphoma History of tear of ACL (anterior cruciate ligament) Obstructive sleep apnea Surgical History S/P ACL reconstruction History of repair of ACL History of bronchoscopy Family History Other No significant family history Social History Housing: House Alcohol intake: former Patient Tobacco Use Status: Never used Tobacco e-Cigarette/Vaping Use: Never Used Second Hand Smoke Exposure: No Substance Use Type: Marijuana service: No Current occupational status: unemployed Cognitive needs: No Hearing needs: No Vision needs: No Physical Exam Vital Signs: BMI result Body Mass Index 43.4 Extrem Other: No effusion Negative Marie's Stable Debi's/anterior drawer Full range of motion Assessment & Plan Assessment & Plan (1) S/P ACL reconstruction: Code(s): Z98.890 - Other specified postprocedural states Category: Surgical Plan: 34-year-old gentleman status post ACL reconstruction doing well. He has goals are to exercise and lose weight rather than play sports. His right knee is not bothering him. He has full range of motion. He has gained weight and is not working out regularly however. I recommend continued strengthening and activity as tolerated. He does not play contact or cutting sports and so there are no additional restrictions at this time. (2) Bucket handle tear of lateral meniscus: Code(s): S83.259A - Bucket-handle tear of lateral meniscus, current injury, unspecified knee, initial encounter Category: Medical Plan: Status post meniscectomy. Doing well. Coding Level of Care Code Est Pt Level 3 (92329) Diagnoses S/P ACL reconstruction Z98.890 Bucket handle tear of lateral meniscus S83.259A
[2024-11-29 09:53] VITALS: BMI 43.4
--- OUTSIDE RECORDS SUMMARY | 2024-11-29 10:05 | XMS_ITS | Clinical Summary ---
Author Organization [facility], Address [address] [place] [address] Phone Care Team Providers Care Air Cargo Specialist Name Role Phone Sb Freeman MD Primary Care Provider [phone]- [phone] Allergies No known active allergies Medications No known medications Active Problems Problem Noted Date Diagnosed Date Malignant tumor of lung 07/15/2020 Hodgkin lymphoma 07/15/2020 Sleep apnea 07/15/2020 Obesity 07/15/2020 Social History Tobacco Use Types Packs/Day Years Used Date Smoking Tobacco: Never Smokeless Tobacco: Never Alcohol Use Standard Drinks/Week Comments Not Currently 0 (1 standard drink = 0.6 oz pur e alcohol) Sex and Gender Information Value Date Recorded Sex Assigned at Not on file Legal Sex Male 2:21 PM EST Gender Identity Not on file Sexual Orientation Not on file Last Filed Vital Signs Vital Sign Reading Time Taken Comments Blood Pressure 132/71 07/20/2020 8:42 AM EST Pulse 111 07/20/2020 8:42 AM EST Temperature 36.4 C (97.5 F) 07/20/2020 8:42 AM EST Respiratory Rate 15 07/20/2020 8:42 AM EST Oxygen Saturation 97% 07/20/2020 8:42 AM EST Inhaled Oxygen Concentration - - Weight 116 kg (255 lb) 07/20/2020 8:42 AM EST Height 162.6 cm (5' 4 ) 07/20/2020 8:42 AM EST Body Mass Index 43.77 07/20/2020 8:42 AM EST Plan of Treatment Health Maintenance Due Date Last Done Comments Hepatitis B Vaccine (1 of 3 - 19+ 3-dose series) 06/09 Pneumococcal Vaccine: Peds ( 0 to 5 Years) and At-Risk Patients (6 to 49 Years) (1 of 2 - PCV) 2011 Influenza Vaccine (Season Ended) [address] [place] [address] [employer] Care Teams Air Cargo Specialist Relationship Specialty Start Date End Date Sb Freeman MD [address] [place] [id number] PCP - General Internal Medicine 07/17/20
== END 2024-11-29 10:37 | disposition home or self-care (01) ==
LOC: HO.HOS 09:51
PROVIDERS: Visit Provider Orthopaedic Surgery
DX: Z47.89 Encounter for other orthopedic aftercare (principal); S83.251D Bucket-handle tear of lateral meniscus, current injury, right knee, subsequent encounter; S83.511D Sprain of anterior cruciate ligament of right knee, subsequent encounter
CPT/HCPCS: 99212

== ENCOUNTER → 2024-11-29 09:50 | Outpatient (BNVA) | payer OTHER, SELFPAY | PROVIDERS: Visit Provider Orthopaedic Surgery | DX: S83.251D Bucket-handle tear of lateral meniscus, current injury, right knee, subsequent encounter (principal); X58.XXXD Exposure to other specified factors, subsequent encounter; Z98.890 Other specified postprocedural states; Z47.89 Encounter for other orthopedic aftercare | CPT/HCPCS: 99212 ==

== ENCOUNTER 2024-12-25 09:57 | Outpatient (REF) | payer OTHER, SELFPAY ==
[2024-12-25 13:43] LABS: MANUAL DIFF FLAG NO
[2024-12-25 13:53] LABS: Hematocrit 45.4 % (42.0-52.0); Hemoglobin 14.8 g/dl (14.0-18.0); Imm Gran Abs Auto 0.06 X10*3/uL (0.00-0.03); Imm Gran Pct Auto 0.8 % (0.0-0.4); Lymphocytes Absolute Auto 1.5 X10*3/uL (1.2-4.9); Mean Corpuscular HGB Conc 32.6 g/dl (31.0-36.0); Mean Corpuscular Hemoglobin 28.4 pg (27.0-33.0); Mean Corpuscular Volume 87.0 fL (80.0-98.0); NRBC Abs Auto 0.000 X10*3/uL (0.0-0.012); NRBC Pct Auto 0.0 /100WBC (0.0-0.2); Platelet Count 272 X10*3/uL (160-400); Red Blood Count 5.22 X10*6/uL (4.60-5.80); White Blood Count 7.6 X10*3/uL (4.8-10.8)
[2024-12-25 14:41] LABS: Alanine Aminotransferase 54 U/L (0-40); Anion Gap 11 (12-20); Aspartate Amino Transferase 43 U/L (5-37); Blood Urea Nitrogen 16 mg/dL (9-16); Calcium 9.3 mg/dL (8.4-10.2); Carbon Dioxide 26 mmol/L (22-29); Chloride 109 mmol/L (96-108); Cholesterol 200 mg/dL (<200); Estimated Glomerular Filt Rate > 60; HDL Cholesterol 44 mg/dL (>40); Potassium 4.1 mmol/L (3.3-5.1); Sodium 142 mmol/L (135-145); Triglycerides 122 mg/dL (<150)
== END 2024-12-25 09:58 | disposition home or self-care (01) ==
LOC: HO.HMGCLDS 09:57
PROVIDERS: PCP Internal Medicine; Visit Provider Internal Medicine
DX: S86.811A Strain of other muscle(s) and tendon(s) at lower leg level, right leg, initial encounter (principal); Z13.220 Encounter for screening for lipoid disorders; Z13.1 Encounter for screening for diabetes mellitus; E66.9 Obesity, unspecified; M79.661 Pain in right lower leg; Z68.42 Body mass index [BMI] 45.0-49.9, adult; X58.XXXA Exposure to other specified factors, initial encounter
CPT/HCPCS: 36415; 80048; 80061; 82306; 84450; 84460; 85025; 99212

== ENCOUNTER 2024-12-25 09:57 | Outpatient (AMB) | payer OTHER, SELFPAY ==
[2024-12-25 09:57] VITALS: BP 100/66; PULSE 76; TEMP 37.1; O2SAT 97; BMI 46.8
--- NOTE | 2024-12-25 09:57 | MHC.OFFWIV ---
Intake Vital Signs 12/25/24 09:57 Height 5 ft 5 in Weight 281 lb 6 oz BMI 46.8 BP 100/66 Blood Pressure Location Rt brachial Position Sitting Pulse 76 Pulse Source Pulse Oximeter Temp 98.7 F Temp Source Oral Pulse Oximetry (%) 97 Oxygen Delivery Method Room Air Intake Visit Reasons: EP RT Calf pain, feels tight 4 days Intake Note: Patient presents right calf pain times 4 days states he felt something as he was walking into [facility] Patient Tobacco Use Status: Never used Tobacco Warehouse Packaging Supervisor Required: Yes Allergies amoxicillin Allergy (Verified 12/25/24 10:01) Unknown Do you need a note to return to daycare/school/sports/work: No HPI HPI Comments History of Present Illness Details Patient is a trinidadian speaking 34yo M who presents with R calf pain Senegalese video intrpretter used for entire visit He said pain in R calf for 4 days Denies trauma but said he was walking and felt a pain/pull in his calf States only hx of RLE issues was surgery in R knee meniscus in April 2024 Denies hx of blood clots of similar pain in past Patient states current pain is every time that he walks No swelling or skin color changes Denies trying anything for it No pain at rest 0/10 CP or SOB PFSH Medical History Morbid obesity with BMI of 40.0-44.9, adult History of Hodgkin's lymphoma History of tear of ACL (anterior cruciate ligament) Obstructive sleep apnea Surgical History S/P ACL reconstruction History of repair of ACL History of bronchoscopy Family History Other No significant family history Social History Housing: House Alcohol intake: former Patient Tobacco Use Status: Never used Tobacco e-Cigarette/Vaping Use: Never Used Second Hand Smoke Exposure: No Substance Use Type: Marijuana service: No Current occupational status: unemployed Cognitive needs: No Hearing needs: No Vision needs: No Review of Systems Const Denies chills and Denies fever(s) Card Denies chest pain and Denies dyspnea Resp Denies dyspnea Musc Reports radiating pain into limb (R calf pain) Skin/Breast Denies erythema, Reports skin pain and Denies skin swelling Physical Exam Vital Signs: Last Vital Signs Temp 98.7 F 12/25/24 09:57 Pulse 76 12/25/24 09:57 BP 100/66 12/25/24 09:57 Pulse Ox 97 12/25/24 09:57 Oxygen Delivery Method Room Air 12/25/24 09:57 BMI result Body Mass Index 46.8 General: Non-toxic, NAD. Speaking full sentences. Skin: Warm dry throughout. Legs are symmetrical in size and shape bilaterally. R posterior calf area of discomfort has a circular greenish purple discoloration with minimal amount of induration. No fluctuance or erythema. No warmth to palpation. Pt only tender to this specfic region of calf and has no other calf ttp Eye: EOMI Cardiac: No pedal edema. MSK: No ttp RLE achilles, ankle or knee. Pt has full ROM RLE. Only tender to palpation over area mentioned above. No circumfrential edema or anterior grossman pain to palpation. Gait stable. Neurology: Alert. No aphasia or facial droop. Gait without abnormality Psych: Good mood and affect Assessment & Plan Assessment & Plan (1) Strain of right calf muscle: Code(s): S86.811A - Strain of other muscle(s) and tendon(s) at lower leg level, right leg, initial encounter Plan: ? small hematoma to R calf He still has achilles intact and no deficit with ROM RLE Wells score -2, no concern DVT Discussed Khushi wrap (applied in office), elevation and cold compress Naproxen prn for discomfort He asked for weight loss management help and told to have f/u on this issue and current request with his PCP We discussd ER protocol and when to seek immediate eval and he gave verbal understanding Medications: New naproxen 500 mg PO BID PRN 14 tabs 0RF pain Coding Level of Care Code Est Pt Level 3 (48531) Diagnoses Strain of right calf muscle S86.811A
--- OUTSIDE RECORDS SUMMARY | 2024-12-25 10:31 | XMS_ITS | Clinical Summary ---
Author Organization [facility], Address [address] [place] [address] Phone Care Team Providers Care Correctional Captain Name Role Phone Sb Freeman MD Primary Care Provider +1- [phone] Allergies No known active allergies Medications No [...] of 2 - PCV) 2011 Influenza Vaccine (#1) [address] [place] [address] [employer] Care Teams Correctional Captain Relationship Specialty Start Date End Date Sb Freeman MD [address] [place] [id number] PCP - General Internal Medicine 07/17/20
--- OUTSIDE RECORDS SUMMARY | 2024-12-25 10:31 | XMS_ITS | Clinical Summary ---
[facility] Organization [facility] Address [address] [place] [address] Care Team Providers Care Jacquard Loom Weaver Name Role Phone Unavailable Primary Care Provider Unavailabl e Social History Tobacco Use Types Packs/Day Years Used Date Smoking Tobacco: Never Assessed Sex and Gender Information Value Date Recorded Sex Assigned at Not on file Legal Sex Male 2:06 AM EST Gender Identity Not on file Sexual Orientation Not on file Plan of Treatment Health Maintenance Due Date Last Done Comments DTaP,Tdap,and Td Vaccines (1 - Tdap) 2011 Hepatitis B Vaccines (1 of 3 - 19+ 3-dose series) 2011 COVID-19 Vaccine ( - 2023-2 5 season) 2024 Influenza Vaccine (#1) 2025 HIB Vaccines Aged Out No longer eligi ble based on patient's age to complete this topic HPV Vaccines Aged Out No longer eligi ble based on patient's age to complete this topic Hepatitis A Vaccines Aged Out No long er eligible based on patient's age to complete this topic IPV Vaccines Aged Out No longer eligi ble based on patient's age to complete this topic MMR Vaccines Aged Out No longer eligi ble based on patient's age to complete this topic Meningococcal ACWY Vaccine Aged Out N o longer eligible based on patient's age to complete this topic Meningococcal B Vaccine Aged Out No l onger eligible based on patient's age to complete this topic Pneumococcal Vaccine: Pediat rics (0 to 5 Years) and At-Risk Patients (6 to 49 Years) Aged Out No longer eligible b ased on patient's age to complete this topic RSV Immunization Patients Un nasir 20 months Aged Out No longer eligible b ased on patient's age to complete this topic Varicella Vaccines Aged Out No longer eligible based on patient's age to complete this topic
== END 2024-12-25 10:41 | disposition home or self-care (01) ==
PROVIDERS: PCP Internal Medicine; Visit Provider Physician Assistant
DX: S86.811A Strain of other muscle(s) and tendon(s) at lower leg level, right leg, initial encounter (principal)

== ENCOUNTER 2025-01-23 11:06 | Outpatient (AMB) | payer OTHER, SELFPAY ==
[2025-01-23 11:20] VITALS: BP 92/64; PULSE 65; TEMP 36.8; O2SAT 98; BMI 46.4
--- NOTE | 2025-01-23 11:20 | A.OFFPC_ITS ---
Vital Signs 01/23/25 11:20 Height 5 ft 5 in Weight 279 lb BMI 46.4 BP 92/64 Blood Pressure Location Rt brachial Position Sitting Pulse 65 Pulse Source Pulse Oximeter Temp 98.3 F Temp Source Oral Pulse Oximetry (%) 98 Oxygen Delivery Method Room Air Intake Visit Reasons: discuss weight loss Intake Note: Pt is here today to discuss weight loss option Forming And Assembling Supervisor Required: Yes Forming And Assembling Supervisor Name: francisca ID # [id number] Information Interpreted: clinical only Allergies amoxicillin Allergy (Verified 01/23/25 11:39) Unknown Medication List - Last Reconciled 01/23/25 by Zoya Freeman MD No Known Home Meds Tobacco use date assessed: 01/23/25 Dental Screening Dental Screen Date: 01/23/25 Did you have a dental visit in the last 12 months?: Yes Did you have a dental problem in the last 6 months where you did not have access to dental care?: No Was dental information given to patient?: Patient has dentist HPI discuss weight loss HPI Details -history obtained via Pakistani interprete r The patient is a 34-year-old male presenting help with weight loss. He has struggled with weight gain over the last year, particularly after a knee surgery nine months ago, which led to decreased physical activity and increased anxiety. - he also history Hodgkin's lymphoma sta tus post chemotherapy in 2020, lost weight going down to 180 during treatment and reported a weight of 300 pounds after treatment -has been cutting back on eating junk fo od and has started getting regular exercise again, but has not been able to lose weight PFSH Medical History Morbid obesity with BMI of 40.0-44.9, adult History of Hodgkin's lymphoma History of tear of ACL (anterior cruciate ligament) Obstructive sleep apnea Surgical History S/P ACL reconstruction History of repair of ACL History of bronchoscopy Family History Other No significant family history Social History Housing: House Alcohol intake: former Patient Tobacco Use Status: Never used Tobacco e-Cigarette/Vaping Use: Never Used Second Hand Smoke Exposure: No Substance Use Type: Marijuana service: No Current occupational status: unemployed Cognitive needs: No Hearing needs: No Vision needs: No Questionnaire PHQ-9 Over the last 2 weeks, how often have you been bothered by any of the following problems? 1. Little interest or pleasure in doing things: not at all 2. Feeling down, depressed, or hopeless: not at all 3. Trouble falling or staying asleep, or sleeping too much: several days 4. Feeling tired or having little energy: several days 5. Poor appetite or overeating: several days 6. Feeling bad about yourself - or that you are a failure or have let yourself or your family down: several days 7. Trouble concentrating on things, such as reading the newspaper or watching television: not at all 8. Moving or speaking so slowly that other people could have noticed. Or the opposite - being so fidgety or restless that you have been moving around a lot more than usual: not at all 9. Thoughts that you would be better off or of hurting yourself in some way: not at all Total score: 4 Depression Screening Interpretation: Negative Depression Screening Done: Yes 66778 - PHQ-9 Billing: Yes Source: Developed by Drs. Juma Crump, Nydia Tucker, Ang Herbert and colleagues, with an educational yg from [employer]. Thrive Questionnaire Date Thrive assessed: 01/23/25 I am a: Patient What is your living situation today?: I have a steady place to live Within the past 12 months, did the food you bought not last and you didn't have the money to get more?: Never true Within the past 12 months, did you worry whether your food would run out before you got money to buy more?: Never true Do you have trouble paying for medicines?: No Do you have trouble getting transportation to medical appointments?: No Do you have trouble paying your heating and electricity bill?: No Do you have trouble taking care of your child, family member or friend?: No Do you have trouble with day-to-day activities such as bathing, preparing meals, shopping, managing finances, etc.?: No Are you currently unemployed and looking for a job?: Yes Are you interested in more education?: Yes Please select the resources that you would like help with: None Currently or been in a relationship where the following occur: No concerns reported THRIVE Score: 0 AUDIT C Alcohol Use Questionnaire (AUDIT-C) 1. How often do you have a drink containing alcohol?: Never Total Score: 0 Score Reviewed/Action Taken: Yes MAKENZIE-7 AMB Questionnaire MAKENZIE-7 Date MAKENZIE - 7 assessed: 01/23/25 Feeling nervous, anxious, or on edge: 1 = Several days Not being able to stop or control worryin = Not at all Worrying too much about different things: 1 = Several days Trouble relaxin = Not at all Being so restless that it is hard to sit still: 1 = Several days Becoming easily annoyed or irritable: 1 = Several days Feeling afraid as if something awful might happen: 0 = Not at all Total MAKENZIE-7 score (0-4 normal; 5-9 mild; 10-14 moderate; 15-21 severe): 4 Source: Developed by Drs. Juma Crump, Nydia Tucker, Ang Herbert and colleagues, with an educational yg from [employer]. MAKENZIE-7 Assessment Billing MAKENZIE-7 Assessment Tool: MAKENZIE-7 Assessment 08127 Review of Systems Const Reports no additional complaints Eyes Denies change in vision ENT Denies nasal congestion, Denies nasal discharge and Denies sore throat Card Denies chest pain, Denies palpitations and Denies dyspnea Resp Denies chest congestion, Denies cough, Denies dyspnea and Denies wheezing GI Denies abdominal pain, Denies melena, Denies bloating and Denies heartburn Denies dysuria, Denies urinary frequency and Denies urinary urgency Musc Denies abnormal gait, Denies arthralgias and Reports stiffness Skin/Breast Denies lesions and Denies rash Neuro Reports no additional complaints and Denies abnormal gait Psych Reports no additional complaints Endo Denies polydipsia, Denies polyuria and Denies palpitations Roddy/Lymph Denies easy bruising Aller/Immun Denies seasonal rhinorrhea and Denies wheezing Physical exam (Primary Care) Vital Signs: Last Vital Signs Temp 98.3 F 01/23/25 11:20 Pulse 65 01/23/25 11:20 BP 92/64 01/23/25 11:20 Pulse Ox 98 01/23/25 11:20 Oxygen Delivery Method Room Air 01/23/25 11:20 BMI result Body Mass Index 46.4 Tobacco/Smoking Status: Tobacco use Status Tobacco use date assessed 01/23/25 01/23/25 11:28 Patient Tobacco Use Status Never used Tobacco 01/23/25 11:28 e-Cigarette/Vaping Use Never Used 01/23/25 11:28 PHQ-9: PHQ-9 Score PHQ-9: Total score 9 01/23/25 11:50 Depression Screening Interpretation: Negative Thrive Assessment: Date of Thrive Assessment Date Thrive assessed 01/23/25 01/23/25 11:28 Currently or been in a relationship where the following occur: No concerns reported Const General: cooperative, comfortable and no acute distress Nutritional Appearance: obese Orientation/consciousness: patient oriented x3 [facility] General nose exam: Normal external nose present Mouth: Normal oral and palatal mucosa present Eyes General: appearance normal, both eyes and all related structures Neck Neck: Yes full ROM, Yes no lymphadenopathy and Yes supple Resp Auscultation: clear to auscultation bilaterally Cardio Rate: regular rate Rhythm: regular rhythm Heart sounds: S1 normal heart sound present and S2 normal heart sound present GI Inspection: Yes obesity Palpation (GI): Soft to palpation, nontender, no guarding and no masses Auscultation: normal bowel sounds General: Yes no CVA tenderness Back/Spine/Pelvis Back: no CVA tenderness and No back tenderness Skin Lesions: no lesions Rashes: no rashes Neuro General: patient oriented x3, gait normal, moves all extremities, no focal motor deficits and CN's II-XI intact bilaterally Extrem General: Yes full ROM, Yes no joint enlargement, Yes no pedal edema and Yes normal gait Psych Appearance: grossly normal and well kempt Mental Status: mental status grossly normal Speech and movement: Normal speech and movement present Affect: normal affect Attitude: cooperative Coding Level of Care Code Est Pt Level 4 (67786) Diagnoses Morbid obesity with BMI of 40.0-44.9, adult E66.01; Z68.41 Additional Codes MAKENZIE-7 Assessment Billing - MAKENZIE-7 Assessment Tool: MAKENZIE-7 Assessment 20171 ([id number]) PHQ-9 - 90004 - PHQ-9 Billing: Yes ([id number]) Assessment & Plan Assessment & Plan (1) Morbid obesity with BMI of 40.0-44.9, adult: Code(s): E66.01 - Morbid (severe) obesity due to excess calories; Z68.41 - Body mass index [BMI] 40.0-44.9, adult Category: Medical Plan Started on phentermine at 15 mg once daily, two hours after breakfast, in conjunction with diet and exercise. The patient is advised to return in four weeks to assess weight loss progress, with potential dosage adjustments to 30 mg or 37.5 mg if necessary. The patient is also encouraged to engage in regular physical activity, starting with low-impact exercises to accommodate his postoperative knee condition. A follow-up appointment with a health and social care teacher has been scheduled to provide additional nutritional support. The patient is informed about the potential side effects of phentermine, including headache, chest pain, and dizziness, and is advised to discontinue use if these occur. Monitoring of blood pressure is recommended due to the stimulant nature of the medication. Patient was informed and verbally consented to the use of an ambient scribe for clinic note documentation during this visit. Medications: New phentermine must administer 2 hours after breakfast 15 mg PO DAILY 30 caps 0RF E66.01 - Morbid (severe) obesity due to excess calories, Z68.41 - Body mass index [BMI] 40.0-44.9, adult
--- OUTSIDE RECORDS SUMMARY | 2025-01-23 12:14 | XMS_ITS | Clinical Summary ---
Author Organization [facility], Address [address] [place] [address] Phone Care Team Providers Care Story Teller Name Role Phone Sb Freeman MD Primary Care Provider +1- [phone] Allergies No known active allergies Medications No [...] PCV) 2011 Influenza Vaccine (#1) [address] [place] [address] [place] [address] Care Teams Story Teller Relationship Specialty Start Date End Date Sb Freeman MD [address] [place] [id number] PCP - General Internal Medicine 07/17/20
--- OUTSIDE RECORDS SUMMARY | 2025-01-23 12:14 | XMS_ITS | Clinical Summary ---
[facility] Organization [facility] Address [address] [place] [address] Care Team Providers Care Tattooer Name Role Phone Unavailable Primary Care Provider [...] Vaccine ( - 2023-2 5 season) 2024 Depression Screening 06/12/2024 Influenza Vaccine (#1) 2025 HIB Vaccines Aged [...]
== END 2025-01-23 12:44 | disposition home or self-care (01) ==
LOC: HO.HMCC 11:07
PROVIDERS: PCP Internal Medicine; Visit Provider Internal Medicine
DX: E66.01 Morbid (severe) obesity due to excess calories (principal); Z68.41 Body mass index [BMI] 40.0-44.9, adult

== ENCOUNTER → 2025-01-23 11:06 | Outpatient (BNVA) | payer OTHER, SELFPAY | PROVIDERS: PCP Internal Medicine; Visit Provider Internal Medicine | DX: Z68.41 Body mass index [BMI] 40.0-44.9, adult (principal); Z85.71 Personal history of Hodgkin lymphoma; Z68.42 Body mass index [BMI] 45.0-49.9, adult | CPT/HCPCS: 96127; 99212 ==

== ENCOUNTER 2025-02-27 11:43 | Outpatient (AMB) | payer OTHER, SELFPAY ==
--- NOTE | 2025-02-27 11:56 | A.OFFPC_ITS ---
Vital Signs 02/27/25 11:57 Height 5 ft 5 in Weight 264 lb BMI 43.9 BP 98/60 Blood Pressure Location Rt brachial Position Sitting Respiration 16 Pulse 78 Pulse Source Pulse Oximeter Temp 98.2 F Temp Source Oral Pulse Oximetry (%) 97 Oxygen Delivery Method Room Air Intake Visit Reasons: 1m follow up Intake Note: Pt is here today for his 1mo. f/u wgt Allergies amoxicillin Allergy (Verified 02/27/25 12:15) Unknown Medication List - Last Reconciled 02/27/25 by Zoya Freeman MD phentermine 15 mg PO DAILY Tobacco use date assessed: 02/27/25 Dental Screening Dental Screen Date: 01/23/25 HPI 1m follow up HPI Details 34-year-old male with history of obesity , started on phentermine 15 mg once a day on last visit a month ago, here today for follow-up. He has been taking his medicine as directed, denies any adverse effects . Has been compliant with recommended diet, avoiding a lot of junk food and frequent snacking especially at night. Has started exercising regularly and has lost 15 lb since last visit. Patient would like to see if he can go higher on his dose [facility] Medical History Morbid obesity with BMI of 40.0-44.9, adult History of Hodgkin's lymphoma History of tear of ACL (anterior cruciate ligament) Obstructive sleep apnea Surgical History S/P ACL reconstruction History of repair of ACL History of bronchoscopy Family History Other No significant family history Social History Housing: House Alcohol intake: former Patient Tobacco Use Status: Never used Tobacco e-Cigarette/Vaping Use: Never Used Second Hand Smoke Exposure: No Substance Use Type: Marijuana service: No Current occupational status: unemployed Cognitive needs: No Hearing needs: No Vision needs: No Questionnaire PHQ-9 Over the last 2 weeks, how often have you been bothered by any of the following problems? 1. Little interest or pleasure in doing things: not at all 2. Feeling down, depressed, or hopeless: not at all 3. Trouble falling or staying asleep, or sleeping too much: several days 4. Feeling tired or having little energy: several days 5. Poor appetite or overeating: several days 6. Feeling bad about yourself - or that you are a failure or have let yourself or your family down: several days 7. Trouble concentrating on things, such as reading the newspaper or watching television: not at all 8. Moving or speaking so slowly that other people could have noticed. Or the opposite - being so fidgety or restless that you have been moving around a lot more than usual: not at all 9. Thoughts that you would be better off or of hurting yourself in some way: not at all Total score: 4 Depression Screening Interpretation: Negative Depression Screening Done: Yes Source: Developed by Drs. Juma Crump, Nydia Tucker, Ang Herbert and colleagues, with an educational yg from [employer]. Thrive Questionnaire Date Thrive assessed: 01/23/25 I am a: Patient What is your living situation today?: I have a steady place to live Within the past 12 months, did the food you bought not last and you didn't have the money to get more?: Never true Within the past 12 months, did you worry whether your food would run out before you got money to buy more?: Never true Do you have trouble paying for medicines?: No Do you have trouble getting transportation to medical appointments?: No Do you have trouble paying your heating and electricity bill?: No Do you have trouble taking care of your child, family member or friend?: No Do you have trouble with day-to-day activities such as bathing, preparing meals, shopping, managing finances, etc.?: No Are you currently unemployed and looking for a job?: Yes Are you interested in more education?: Yes Please select the resources that you would like help with: None Currently or been in a relationship where the following occur: No concerns reported THRIVE Score: 0 AUDIT C Alcohol Use Questionnaire (AUDIT-C) 1. How often do you have a drink containing alcohol?: Never Total Score: 0 MAKENZIE-7 AMB Questionnaire MAKENZIE-7 Date MAKENZIE - 7 assessed: 01/23/25 Feeling nervous, anxious, or on edge: 1 = Several days Not being able to stop or control worryin = Not at all Worrying too much about different things: 1 = Several days Trouble relaxin = Not at all Being so restless that it is hard to sit still: 1 = Several days Becoming easily annoyed or irritable: 1 = Several days Feeling afraid as if something awful might happen: 0 = Not at all Total MAKENZIE-7 score (0-4 normal; 5-9 mild; 10-14 moderate; 15-21 severe): 4 Source: Developed by Drs. Juma Crump, Nydia Tucker, Ang Herbert and colleagues, with an educational yg from [employer]. Review of Systems Const All systems reviewed & are unremarkable except as noted in HPI and below Physical exam (Primary Care) Vital Signs: Last Vital Signs Temp 98.2 F 02/27/25 11:57 Pulse 78 02/27/25 11:57 Resp 16 02/27/25 11:57 BP 98/60 02/27/25 11:57 Pulse Ox 97 02/27/25 11:57 Oxygen Delivery Method Room Air 02/27/25 11:57 BMI result Body Mass Index 43.9 Tobacco/Smoking Status: Tobacco use Status Tobacco use date assessed 02/27/25 02/27/25 12:01 Patient Tobacco Use Status Never used Tobacco 02/27/25 12:01 e-Cigarette/Vaping Use Never Used 02/27/25 12:01 PHQ-9: PHQ-9 Score PHQ-9: Total score 4 02/27/25 12:18 Depression Screening Interpretation: Negative Thrive Assessment: Date of Thrive Assessment Date Thrive assessed 01/23/25 02/27/25 12:01 Currently or been in a relationship where the following occur: No concerns reported Const General: no acute distress Nutritional Appearance: obese Orientation/consciousness: patient oriented x3 Neck Neck: Yes full ROM, Yes no lymphadenopathy and Yes supple Resp Auscultation: clear to auscultation bilaterally Cardio Rate: regular rate Rhythm: regular rhythm Heart sounds: S1 normal heart sound present and S2 normal heart sound present GI Inspection: Yes obesity Palpation (GI): Soft to palpation, nontender, no guarding and no masses Auscultation: normal bowel sounds Back/Spine/Pelvis Back: No back tenderness Neuro General: patient oriented x3, gait normal, moves all extremities, no focal motor deficits and CN's II-XI intact bilaterally Extrem General: Yes full ROM, Yes no joint enlargement, Yes no pedal edema and Yes normal gait Coding Level of Care Code Est Pt Level 4 (02635) Diagnoses Morbid obesity with BMI of 40.0-44.9, adult E66.01; Z68.41 Assessment & Plan Assessment & Plan (1) Morbid obesity with BMI of 40.0-44.9, adult: Code(s): E66.01 - Morbid (severe) obesity due to excess calories; Z68.41 - Body mass index [BMI] 40.0-44.9, adult Category: Medical Plan: Changed phentermine dose now to 30 mg per capsule to take once a day 2 hours after breakfast. Combined with the adherence to healthy eating habits and regular exercise. Will see him back for follow-up in 6 weeks, referred to Vanessa for nutrition guidance Medications: Changed From phentermine must administer 2 hours after breakfast 15 mg PO DAILY 30 caps 0RF E66.01 - Morbid (severe) obesity due to excess calories, Z68.41 - Body mass index [BMI] 40.0-44.9, adult To phentermine must administer 2 hours after breakfast 30 mg PO DAILY 30 caps 1RF E66.01 - Morbid (severe) obesity due to excess calories, Z68.41 - Body mass index [BMI] 40.0-44.9, adult
[2025-02-27 11:57] VITALS: BP 98/60; PULSE 78; RESP 16; TEMP 36.8; O2SAT 97; BMI 43.9
--- OUTSIDE RECORDS SUMMARY | 2025-02-27 14:04 | XMS_ITS | Clinical Summary ---
Author Organization [facility]y Address [address] [place] [address] Care Team Providers Care Manager Of Drilling Name Role Phone Unavailable Primary Care Provider [...] of 3 - 19+ 3-dose series) 2011 Depression Screening 06/12/2024 COVID-19 Vaccine (1 - 2023-2 5 season) 2025 Influenza Vaccine (#1) 2025 HIB Vaccines Aged [...]
--- OUTSIDE RECORDS SUMMARY | 2025-02-27 14:04 | XMS_ITS | Clinical Summary ---
Author Organization [facility], Address [address] [place] [address] Phone Care Team Providers Care Onion Tier Name Role Phone Sb Freeman MD Primary Care Provider [phone] Allergies No known active allergies Medications No [...] PCV) 2011 Influenza Vaccine (#1) [address] [place] [address] [employer] Care Teams Onion Tier Relationship Specialty Start Date End Date Sb Freeman MD [address] [place] [id number] PCP - General Internal Medicine 07/17/20
== END 2025-02-27 12:28 | disposition home or self-care (01) ==
PROVIDERS: PCP Internal Medicine; Visit Provider Internal Medicine
DX: E66.01 Morbid (severe) obesity due to excess calories (principal); Z68.41 Body mass index [BMI] 40.0-44.9, adult

== ENCOUNTER → 2025-02-27 11:43 | Outpatient (BNVA) | payer OTHER, SELFPAY | PROVIDERS: PCP Internal Medicine; Visit Provider Internal Medicine | DX: E66.01 Morbid (severe) obesity due to excess calories (principal); Z68.41 Body mass index [BMI] 40.0-44.9, adult; Z79.899 Other long term (current) drug therapy | CPT/HCPCS: 99212 ==

== ENCOUNTER 2025-04-29 14:13 | Outpatient (AMB) | payer OTHER, SELFPAY ==
--- NOTE | 2025-04-29 14:30 | A.OFFPC_ITS ---
Vital Signs 04/29/25 14:39 Height 5 ft 5 in Weight 246 lb BMI 40.9 BP 100/70 Blood Pressure Location Lt brachial Position Sitting Respiration 15 Pulse 72 Pulse Source Pulse Oximeter Temp 98.4 F Temp Source Oral Pulse Oximetry (%) 98 Oxygen Delivery Method Room Air Intake Visit Reasons: 2 month follow up Intake Note: Pt is here today for his 2mo. f/u Ultrasound Manager Required: No Allergies amoxicillin Allergy (Verified 04/29/25 14:49) Unknown Medication List - Last Reconciled 04/29/25 by Zoya Freeman MD phentermine 30 mg PO DAILY Tobacco use date assessed: 04/29/25 Dental Screening Dental Screen Date: 04/29/25 Did you have a dental visit in the last 12 months?: Yes Did you have a dental problem in the last 6 months where you did not have access to dental care?: No Was dental information given to patient?: Patient has dentist HPI 2 month follow up HPI Details The patient is a 34-year-old male presenting for a follow-up visit for weight loss management. He has been taking phentermine for weight loss, initially at a dose of 15 mg and for the last two months at 30 mg. He reports a weight loss of approximately 41 pounds since December, with a current weight of 264 pounds. He has been exercising engaging in exercise. He is currently out of his phentermine 30 mg medication but states that he is able to control his food cravings and eating the same as when he was taking phentermine .. [facility] Medical History Morbid obesity with BMI of 40.0-44.9, adult History of Hodgkin's lymphoma History of tear of ACL (anterior cruciate ligament) Obstructive sleep apnea Surgical History S/P ACL reconstruction History of repair of ACL History of bronchoscopy Family History Other No significant family history Social History Housing: House Alcohol intake: former Patient Tobacco Use Status: Never used Tobacco e-Cigarette/Vaping Use: Never Used Second Hand Smoke Exposure: No Substance Use Type: Marijuana service: No Current occupational status: unemployed Cognitive needs: No Hearing needs: No Vision needs: No Questionnaire PHQ-9 Over the last 2 weeks, how often have you been bothered by any of the following problems? 1. Little interest or pleasure in doing things: not at all 2. Feeling down, depressed, or hopeless: not at all 3. Trouble falling or staying asleep, or sleeping too much: several days 4. Feeling tired or having little energy: several days 5. Poor appetite or overeating: several days 6. Feeling bad about yourself - or that you are a failure or have let yourself or your family down: several days 7. Trouble concentrating on things, such as reading the newspaper or watching television: not at all 8. Moving or speaking so slowly that other people could have noticed. Or the opposite - being so fidgety or restless that you have been moving around a lot more than usual: not at all 9. Thoughts that you would be better off or of hurting yourself in some way: not at all Total score: 4 Depression Screening Interpretation: Negative Depression Screening Done: Yes Source: Developed by Drs. Juma Crump, Nydia Tucker, Ang Herbert and colleagues, with an educational yg from [employer]. Thrive Questionnaire Date Thrive assessed: 01/23/25 I am a: Patient What is your living situation today?: I have a steady place to live Within the past 12 months, did the food you bought not last and you didn't have the money to get more?: Never true Within the past 12 months, did you worry whether your food would run out before you got money to buy more?: Never true Do you have trouble paying for medicines?: No Do you have trouble getting transportation to medical appointments?: No Do you have trouble paying your heating and electricity bill?: No Do you have trouble taking care of your child, family member or friend?: No Do you have trouble with day-to-day activities such as bathing, preparing meals, shopping, managing finances, etc.?: No Are you currently unemployed and looking for a job?: Yes Are you interested in more education?: Yes Please select the resources that you would like help with: None Currently or been in a relationship where the following occur: No concerns reported THRIVE Score: 0 AUDIT C Alcohol Use Questionnaire (AUDIT-C) 2. How many drinks containing alcohol do you have on a typical day when you are drinking?: 1 or 2 3. How often do you have six or more drinks on one occasion?: Never Total Score: 0 MAKENZIE-7 AMB Questionnaire MAKENZIE-7 Date MAKENZIE - 7 assessed: 01/23/25 Source: Developed by Drs. Juma Crump, Nydia Tucker, Ang Herbert and colleagues, with an educational yg from [employer]. Review of Systems Const All systems reviewed & are unremarkable except as noted in HPI and below Physical exam (Primary Care) Vital Signs: Last Vital Signs Temp 98.4 F 04/29/25 14:39 Pulse 72 04/29/25 14:39 Resp 15 04/29/25 14:39 BP 100/70 04/29/25 14:39 Pulse Ox 98 04/29/25 14:39 Oxygen Delivery Method Room Air 04/29/25 14:39 BMI result Body Mass Index 40.9 Tobacco/Smoking Status: Tobacco use Status Tobacco use date assessed 04/29/25 04/29/25 14:33 Patient Tobacco Use Status Never used Tobacco 04/29/25 14:33 e-Cigarette/Vaping Use Never Used 04/29/25 14:33 Depression Screening Interpretation: Negative Thrive Assessment: Date of Thrive Assessment Date Thrive assessed 01/23/25 04/29/25 14:33 Currently or been in a relationship where the following occur: No concerns reported Const General: no acute distress Nutritional Appearance: obese Orientation/consciousness: patient oriented x3 Neck Neck: Yes full ROM, Yes no lymphadenopathy and Yes supple Resp Auscultation: clear to auscultation bilaterally Cardio Rate: regular rate Rhythm: regular rhythm Heart sounds: S1 normal heart sound present and S2 normal heart sound present GI Inspection: Yes obesity Palpation (GI): Soft to palpation and nontender Auscultation: normal bowel sounds Back/Spine/Pelvis Back: No back tenderness Neuro General: patient oriented x3, gait normal, moves all extremities, no focal motor deficits and CN's II-XI intact bilaterally Extrem General: Yes full ROM, Yes no joint enlargement, Yes no pedal edema and Yes normal gait Coding Level of Care Code Est Pt Level 4 (82656) Diagnoses Morbid obesity with BMI of 40.0-44.9, adult E66.01; Z68.41 Assessment & Plan Assessment & Plan (1) Morbid obesity with BMI of 40.0-44.9, adult: Code(s): E66.01 - Morbid (severe) obesity due to excess calories; Z68.41 - Body mass index [BMI] 40.0-44.9, adult Category: Medical Plan: The patient is responding well to Phentermine , with a significant weight loss of 41 pounds since December. He is motivated to continue toward his goal weight of 210-220 pounds. His blood pressure remains stable. The dose of phentermine will be increased to 37.5 mg daily, to take the medication two hours after breakfast. Counseling was provided on healthy eating, including portion control of carbohydrates, and the importance of exercise. The patient was advised that phentermine is a short-term treatment. A follow-up is scheduled for June to re-evaluate progress and begin tapering off the medication. An influenza vaccine was offered, but the patient declined at this time. He was advised to schedule a physical exam in conjunction with his next follow-up in June Patient was informed and verbally consented to the use of an ambient scribe for clinic note documentation during this visit. Medications: New phentermine must administer 30 minutes before or 1-2 hours after breakfast 37.5 mg PO DAILY 30 tabs 1RF NS Discontinued phentermine must administer 2 hours after breakfast Discontinued Reason: Doctor's Order 30 mg PO DAILY 30 caps 1RF E66.01 - Morbid (severe) obesity due to excess calories, Z68.41 - Body mass index [BMI] 40.0-44.9, adult
[2025-04-29 14:39] VITALS: BP 100/70; PULSE 72; RESP 15; TEMP 36.9; O2SAT 98; BMI 40.9
--- OUTSIDE RECORDS SUMMARY | 2025-04-30 10:16 | XMS_ITS | Clinical Summary ---
[facility] Organization [facility] Address [address] [place] [address] Care Team Providers Care Group Burner Machine Name Role Phone Unavailable Primary Care Provider [...] of 3 - 19+ 3-dose series) 2011 HPV Vaccines (1 - 3-dose SCD M series) 2019 Depression Screening 06/12/2024 COVID-19 Vaccine (1 - 2024-2 6 season) 2025 Influenza Vaccine (#1) 2025 RSV Immunization Adult Patie nts (1 - 1-dose 75+ series) 2067 HIB Vaccines Aged Out No longer eligi [...]
== END 2025-04-29 14:58 | disposition home or self-care (01) ==
LOC: HO.HMCC 14:14
PROVIDERS: PCP Internal Medicine; Visit Provider Internal Medicine
DX: E66.01 Morbid (severe) obesity due to excess calories (principal); Z68.41 Body mass index [BMI] 40.0-44.9, adult

== ENCOUNTER → 2025-04-29 14:13 | Outpatient (BNVA) | payer OTHER, SELFPAY | PROVIDERS: PCP Internal Medicine; Visit Provider Internal Medicine | DX: E66.01 Morbid (severe) obesity due to excess calories (principal); Z68.41 Body mass index [BMI] 40.0-44.9, adult | CPT/HCPCS: 99212 ==